=== PATIENT | male | born 1955 | race African-American/Black ===

== ENCOUNTER 2017-06-27 12:56 | Emergency (ER) | payer MEDICAID ==
[~2017-06-27] VITALS: Ht 180.3 cm; Wt 81.6 kg
[~2017-06-27 12:56] MED LIST: ACETAMINOPHEN650 M2 GT; ALBUTEROL2.5 MG/3 M HHN; ATROVENT500 MCG/2. HHN; BACTRIM-DS1 EA GT; BACTRIM-DS1 EA ORAL; BISACODYL5 MG RC; CLONIDINE0.1 MG GT; COREG25 MG GT; FERROUS SU325 MG/5 M GT; FLEET ENEMA133 ML RC; HYDRALAZINE HCL50 MG GT; MILK OF MA400 MG/51 GT; MULTIVITAM9 MG/15 M2 GT; NEXIUM40 MG GT; NORVASC5 MG GT; NOVOLIN R100 UNIT/1 SUBQ; acetaminophen GT; amlodipine besylate GT; vitamin c GT
[2017-06-27 13:00] VITALS: BP 100/45
[2017-06-27] MEDS ORDERED: BISACODYL10 M1 RC (13:06)
[2017-06-27] MEDS ORDERED: ASCORBIC A500 MG/1 M IJ (13:06)
[2017-06-27] MEDS ORDERED: FERROUS SU220 MG/53 PO (13:06)
[2017-06-27] MEDS ORDERED: GLUCAGON HCL1 MG IM (13:06)
--- NOTE | 2017-06-27 13:06 | Emergency Room Report ---
History of Present Illness General Chief Complaint: Vomiting Source: EMS Present Illness HPI Patient presents from nursing facility with reports of coffee-ground emesis Patient himself has a tracheostomy not verbal History of present illness is significantly limited Unknown regarding dark stool Unknown regarding fever Unknown regarding chest pain The coffee-ground emesis happened earlier today Patient does have a G-tube in place Allergies: Coded Allergies: No Known Allergies (Verified , 02/21/07) Patient History Limited by: medical condition Past Medical History: see triage record Pertinent Family History: unable to obtain Reviewed Nursing Documentation: PMH: Agreed, PSxH: Agreed Nursing Documentation-PMH Hx Cardiac Problems: Yes Hx Hypertension: Yes Hx Diabetes: Yes Hx Cancer: No Hx Gastrointestinal Problems: Yes - gastrostomy tube Hx Neurological Problems: Yes Hx Cerebrovascular Accident: Yes Hx Transient Ischemic Attacks: Yes Hx Encephalitis: Yes Review of Systems All Other Systems: limited - Other than the ones mentioned in the history of present illness all others are reviewed however they do stay limited due to the patient's mental status Physical Exam Vital Signs Date Time Temp Pulse Resp B/P (MAP) Pulse Ox O2 Delivery O2 Flow Rate FiO2 06/27/17 12:48 98.6 82 20 136/84 100 Mechanical Ventilator Sp02 EP Interpretation: reviewed, normal General Appearance: no apparent distress Head: normocephalic, atraumatic Eyes: bilateral eye PERRL ENT: normal pharynx, other - Tracheostomy in place Neck: supple Respiratory: crackles - diffusely in both lower lobes Cardiovascular #1: regular rate, rhythm, no edema Gastrointestinal: non tender, soft - Feeding tube in place Musculoskeletal: other - Patient chronically debilitated limited exam Neurologic: responsive - Responsive with eyes open tracking but not verbal Skin: other - several skin breakdowns Lymphatic: no adenopathy Medical Decision Making ER Course Case his hand out to oncoming physician Dr. Lambert for followup on labs and final disposition Last Vital Signs Date Time Temp Pulse Resp B/P (MAP) Pulse Ox O2 Delivery O2 Flow Rate FiO2 06/27/17 12:48 98.6 82 20 136/84 100 Mechanical Ventilator Scripts Cephalexin* (KEFLEX*) 500 Mg Capsule 500 MG GT Q6H, #28 CAP 0 Refills Prov: SARAH LAMBERT M.D. 06/27/17 JUSTINA BEASLEY D.O. Jun 27, 2017 13:06
[2017-06-27] MEDS ORDERED: RANITIDINE HCL150 MG GT (13:16)
[2017-06-27] MEDS ORDERED: HUMALOG100 UNIT/4 SUBQ (13:16)
[2017-06-27] MEDS ORDERED: NORVASC5 MG ORAL (13:16)
[2017-06-27] MEDS ORDERED: K-TAB ER20 MEQ GT (13:16)
[2017-06-27] MEDS ORDERED: ACETAMINOPHEN325 M1 ORAL (13:16)
[2017-06-27] MEDS ORDERED: LANTUS SOL100 UNIT/1 SUBQ (13:16)
[2017-06-27] MEDS ORDERED: PERIDEX15 ML MM (13:16)
[2017-06-27] MEDS ORDERED: ACETAMINOPHEN325 M1 GT (13:16)
[2017-06-27] MEDS ORDERED: MILK OF MA2400 MG/10 ORAL (13:16)
[2017-06-27] MEDS ORDERED: POTASSIUM CHLO10 ME3 GT (13:16)
[2017-06-27] MEDS ORDERED: ZANTAC150 MG ORAL (13:16)
[2017-06-27] MEDS ORDERED: 1/2 NS 1000ml IV ONE (13:31)
[2017-06-27 14:15] LABS: BASOPHILS % (AUTO) 0.9 % (0.0-2.0); EOSINOPHILS % (AUTO) 12.8 % (0.0-3.0); HEMATOCRIT 41.8 % (42.0-52.0); LYMPHOCYTES % (AUTO) 22.7 % (20.0-45.0); MEAN CORPUSCULAR VOLUME 83 FL (80-99); MONOCYTES % (AUTO) 6.7 % (1.0-10.0); NEUTROPHILS % (AUTO) 56.9 % (45.0-75.0); PLATELET COUNT 150 K/UL (150-450); RED BLOOD COUNT 5.02 M/UL (4.70-6.10); RED CELL DISTRIBUTION WIDTH 13.4 % (11.6-14.8); WHITE BLOOD COUNT 9.7 K/UL (4.8-10.8)
[2017-06-27 14:19] LABS: BILIRUBIN, URINE NEGATIVE (NEGATIVE); GLUCOSE, URINE (UA) NEGATIVE (NEGATIVE); KETONES,URINE NEGATIVE (NEGATIVE); LEUKOCYTE ESTERASE ,URINE 3+ (NEGATIVE); NITRITE,URINE NEGATIVE (NEGATIVE); PH,URINE 7 (4.5-8.0); PROTEIN,URINE NEGATIVE (NEGATIVE); UROBILINOGEN,URINE NORMAL MG/DL (0.0-1.0)
[2017-06-27 14:27] LABS: COLOR,URINE YELLOW
[2017-06-27 14:36] LABS: APPEARANCE,URINE CLOUDY
[2017-06-27 14:45] LABS: ALANINE AMINOTRANSFERASE 34 U/L (12-78); ALBUMIN 3.3 G/DL (3.4-5.0); ALBUMIN/GLOBULIN RATIO 0.7 (1.0-2.7); ALKALINE PHOSPHATASE 69 U/L (46-116); ANION GAP 6 mmol/L (5-15); ASPARTATE AMINO TRANSFERASE 25 U/L (15-37); BILIRUBIN,TOTAL 0.5 MG/DL (0.2-1.0); BLOOD UREA NITROGEN 28 mg/dL (7-18); CALCIUM 9.6 MG/DL (8.5-10.1); CARBON DIOXIDE 32 MMOL/L (21-32); CHLORIDE 103 MMOL/L (98-107); CHOLESTEROL 134 MG/DL (< 200); CKMB 2.2 NG/ML (0.0-3.6); CREATINE KINASE 164 U/L (26-308); CREATININE 1.1 MG/DL (0.55-1.30); HDL CHOLESTEROL 37 MG/DL (40-60); POTASSIUM 3.9 MMOL/L (3.5-5.1); SODIUM 141 MMOL/L (136-145); TRIGLYCERIDES 42 MG/DL (0-200)
[2017-06-27 15:00] VITALS: BP 123/74
[2017-06-27] MEDS ORDERED: Pantoprazole Inj IVP ONE (15:00)
[2017-06-27] MEDS ORDERED: cefTRIAXone 1 GM in NS 55 ML IVPB ONE (15:00)
--- NOTE | 2017-06-27 15:01 | Diagnostic Imaging Report ---
Indication: Chest Comparison: 11/28/12 A single view chest radiograph was obtained. Findings: Ill-defined density noted in the right mid and lower lung field. This was seen previously and is chronic. The heart is enlarged. This current study is limited by the patient's hand overlying the chest. There is a tracheostomy present. The bones are osteopenic. Impression: Limited evaluation as described above. Ill-defined right chest density most likely thickening and calcification of the pleura, seen previously.
--- NOTE | 2017-06-27 15:08 | Infectious Diseases Prog Note ---
Assessment/Plan Problems: (1) UTI (urinary tract infection) Assessment & Plan: will start cefepime empirically pending culture (2) Coffee ground emesis Assessment & Plan: keep NPO, monitor H/H, transfuse blood as needed, consult GI (3) GI bleed Assessment & Plan: monitor H/H transfuse blood as needed (4) Tracheostomy care Assessment & Plan: continue trach care as needed Subjective Allergies: Coded Allergies: No Known Allergies (Verified , 02/21/07) Objective Vital Signs Last 24 Hour Vital Signs Date Time Temp Pulse Resp B/P (MAP) Pulse Ox O2 Delivery O2 Flow Rate FiO2 06/27/17 14:50 85 16 40 06/27/17 13:00 82 24 40 06/27/17 12:48 98.6 82 20 136/84 100 Mechanical Ventilator Height (Feet): 5 Height (Inches): 11.00 Weight (Pounds): 180 Laboratory Tests Test 06/27/17 13:20 White Blood Count 9.7 K/UL (4.8-10.8) Red Blood Count 5.02 M/UL (4.70-6.10) Hemoglobin 13.0 G/DL (14.2-18.0) L Hematocrit 41.8 % (42.0-52.0) L Mean Corpuscular Volume 83 FL (80-99) Mean Corpuscular Hemoglobin 25.8 PG (27.0-31.0) L Mean Corpuscular Hemoglobin Concent 31.0 G/DL (32.0-36.0) L Red Cell Distribution Width 13.4 % (11.6-14.8) Platelet Count 150 K/UL (150-450) Mean Platelet Volume 9.7 FL (6.5-10.1) Neutrophils (%) (Auto) 56.9 % (45.0-75.0) Lymphocytes (%) (Auto) 22.7 % (20.0-45.0) Monocytes (%) (Auto) 6.7 % (1.0-10.0) Eosinophils (%) (Auto) 12.8 % (0.0-3.0) H Basophils (%) (Auto) 0.9 % (0.0-2.0) Prothrombin Time 10.2 SEC (9.30-11.50) Prothromb Time International Ratio 1.0 (0.9-1.1) Activated Partial Thromboplast Time 27 SEC (23-33) Urine Color Yellow Urine Appearance Cloudy Urine pH 7 (4.5-8.0) Urine Specific [place] 1.010 (1.005-1.035) Urine Protein Negative (NEGATIVE) Urine Glucose (UA) Negative (NEGATIVE) Urine Ketones Negative (NEGATIVE) Urine Occult Blood Negative (NEGATIVE) Urine Nitrite Negative (NEGATIVE) Urine Bilirubin Negative (NEGATIVE) Urine Urobilinogen Normal MG/DL (0.0-1.0) Urine Leukocyte Esterase 3+ (NEGATIVE) H Urine RBC 0-2 /HPF (0 - 0) H Urine WBC 5-10 /HPF (0 - 0) H Urine Squamous Epithelial Cells Occasional /LPF Urine Bacteria Many /HPF (NONE) H Sodium Level 141 MMOL/L (136-145) Potassium Level 3.9 MMOL/L (3.5-5.1) Chloride Level 103 MMOL/L (98-107) Carbon Dioxide Level 32 MMOL/L (21-32) Anion Gap 6 mmol/L (5-15) Blood Urea Nitrogen 28 mg/dL (7-18) H Creatinine 1.1 MG/DL (0.55-1.30) Estimat Glomerular Filtration Rate > 60 mL/min (>60) Glucose Level 96 MG/DL (74-106) Calcium Level 9.6 MG/DL (8.5-10.1) Total Bilirubin 0.5 MG/DL (0.2-1.0) Aspartate Amino Transf (AST/SGOT) 25 U/L (15-37) Alanine Aminotransferase (ALT/SGPT) 34 U/L (12-78) Alkaline Phosphatase 69 U/L (46-116) Total Creatine Kinase 164 U/L (26-308) Creatine Kinase MB 2.2 NG/ML (0.0-3.6) Creatine Kinase MB Relative Index 1.3 Troponin I 0.017 ng/mL (0.000-0.056) Total Protein 8.2 G/DL (6.4-8.2) Albumin 3.3 G/DL (3.4-5.0) L Globulin 4.9 g/dL Albumin/Globulin Ratio 0.7 (1.0-2.7) L Triglycerides Level 42 MG/DL (0-200) Cholesterol Level 134 MG/DL (< 200) LDL Cholesterol 94 mg/dL (<100) HDL Cholesterol 37 MG/DL (40-60) L Cholesterol/HDL Ratio 3.6 (3.3-4.4) Current Medications Medications (Trade) Dose Ordered Sig/Kendell Route PRN Reason Start Time Stop Time Status Last Admin Dose Admin Ceftriaxone Sodium 1 gm/ Sodium Chloride 55 ml @ 110 mls/hr ONCE ONCE IVPB 06/27/17 15:00 06/27/17 15:29 Sodium Chloride 1,000 ml @ 999 mls/hr Q1H1M ONCE IV 06/27/17 15:00 06/27/17 16:00 Jose Eduardo Swann M.D. Jun 27, 2017 15:08
[2017-06-27 16:15] VITALS: BP 118/66
[2017-06-27] MEDS ORDERED: KEFLEX500 MG GT (17:42)
--- NOTE | 2017-06-27 18:30 | Consultation ---
DATE OF CONSULTATION: 06/27/2017 CONSULTING PHYSICIAN: Jose Eduardo Swann M.D. ATTENDING PHYSICIAN: Torres Jruado M.D. REQUESTING PHYSICIAN: Segun Figueredo M.D. REASON FOR CONSULTATION: Urinary tract infection, recommendation for antibiotic therapy. HISTORY OF PRESENT ILLNESS: The patient is a 62-year-old [facility] resident, who was sent to [facility] Emergency Room for recurrent episode of coffee-ground emesis. The patient had tracheostomy, nonverbal, cannot provide any history. History was mainly obtained from the medical record and the emergency room staff. The patient had dark stools for a couple of days before presentation. No evidence of fever or chills at the [facility]. No other associated problem. G-tube was placed long time ago with no evidence of drainage around it. The patient had temperature of 98.6. He was saturating 100% on mechanical ventilation. Urinalysis showed evidence of infection, so he was given ceftriaxone and I was consulted by the primary provider for antibiotic treatment for his urinary tract infection and further management. REVIEW OF SYSTEMS: Unable to obtain. The patient is poor historian, cannot provide any history. PAST MEDICAL HISTORY: Significant for coronary artery disease, hypertension, diabetes, dysphagia, status post G-tube placement, CVA, TIA, and encephalitis. PAST SURGICAL HISTORY: Negative. FAMILY HISTORY: Unable to obtain. SOCIAL HISTORY: He is [facility] resident. No recent drugs, tobacco, or alcohol. ALLERGIES: No known drug allergy. MEDICATIONS: He received ceftriaxone in the emergency room. For the rest of his medications, please refer to MAR. PHYSICAL EXAMINATION: VITAL SIGNS: Temperature 98.6, pulse 85, respirations 16, blood pressure 136/84, and saturation 100% on mechanical ventilation. GENERAL: A middle-aged male with trach, lying in bed, comfortable, nonverbal, not in distress. HEENT: Normocephalic, atraumatic. Pupils reactive to light. Dry oral mucosa. No exudate or thrush. NECK: Supple with tracheostomy, site looks intact. CARDIOVASCULAR: Regular rate and rhythm. No murmur. LUNGS: He had diminished breathing sounds at the bases. No wheezing. No rhonchi. ABDOMEN: Soft, nontender, and nondistended. Positive bowel sounds. G-tube site looks intact. EXTREMITIES: No edema or cyanosis. SKIN: No rash or hives. LABORATORY DATA: White count 9.7, hemoglobin 13, and platelet count 150,000. BUN 28, creatinine 1.1. AST 25, ALT 34. Urinalysis showed +3 leukocyte esterase, red blood cells 0-2, WBC 5-10, and many bacteria. IMAGING: Chest x-ray showed limited evaluation, ill-defined right chest density most likely thickening and calcification of the pleura. ASSESSMENT AND RECOMMENDATION: 1. Urinary tract infection. We will start cefepime empiric treatment pending urine culture results. 2. Coffee-ground emesis. Keep n.p.o. Monitor hemoglobin and hematocrit. Transfuse blood as needed. Consult Gastroenterology. 3. Gastrointestinal bleeding. Monitor hemoglobin and hematocrit. Transfuse blood as needed. 4. Tracheostomy care. Continue tracheostomy care as needed. Thank you for the consult. Jose Eduardo Swann M.D. DR: Deepak JOB#: [id number] CC:
--- NOTE | 2017-06-27 18:30 | Consultation ---
DATE OF CONSULTATION: 06/27/2017 CONSULTING PHYSICIAN: Jose Eduardo Swann M.D. ATTENDING PHYSICIAN: Torres Jurado M.D. REQUESTING PHYSICIAN: Segun Figueredo M.D. REASON FOR CONSULTATION: Urinary tract infection, recommendation for antibiotic therapy. HISTORY OF PRESENT ILLNESS: The patient is a 62-year-old [facility] resident, who was sent to [facility] Emergency Room for recurrent episode of coffee-ground emesis. The patient had tracheostomy, nonverbal, cannot provide any history. History was mainly obtained from the medical record and the emergency room staff. The patient had dark stools for a couple of days before presentation. No evidence of fever or chills at the [facility]. No other associated problem. G-tube was placed long time ago with no evidence of drainage around it. The patient had temperature of 98.6. He was saturating 100% on mechanical ventilation. Urinalysis showed evidence of infection, so he was given ceftriaxone and I was consulted by the primary provider for antibiotic treatment for his urinary tract infection and further management. REVIEW OF SYSTEMS: Unable to obtain. The patient is poor historian, cannot provide any history. PAST MEDICAL HISTORY: Significant for coronary artery disease, hypertension, diabetes, dysphagia, status post G-tube placement, CVA, TIA, and encephalitis. PAST SURGICAL HISTORY: Negative. FAMILY HISTORY: Unable to obtain. SOCIAL HISTORY: He is [facility] resident. No recent drugs, tobacco, or alcohol. ALLERGIES: No known drug allergy. MEDICATIONS: He received ceftriaxone in the emergency room. For the rest of his medications, please refer to MAR. PHYSICAL EXAMINATION: VITAL SIGNS: Temperature 98.6, pulse 85, respirations 16, blood pressure 136/84, and saturation 100% on mechanical ventilation. GENERAL: A middle-aged male with trach, lying in bed, comfortable, nonverbal, not in distress. HEENT: Normocephalic, atraumatic. Pupils reactive to light. Dry oral mucosa. No exudate or thrush. NECK: Supple with tracheostomy, site looks intact. CARDIOVASCULAR: Regular rate and rhythm. No murmur. LUNGS: He had diminished breathing sounds at the bases. No wheezing. No rhonchi. ABDOMEN: Soft, nontender, and nondistended. Positive bowel sounds. G-tube site looks intact. EXTREMITIES: No edema or cyanosis. SKIN: No rash or hives. LABORATORY DATA: White count 9.7, hemoglobin 13, and platelet count 150,000. BUN 28, creatinine 1.1. AST 25, ALT 34. Urinalysis showed +3 leukocyte esterase, red blood cells 0-2, WBC 5-10, and many bacteria. IMAGING: Chest x-ray showed limited evaluation, ill-defined right chest density most likely thickening and calcification of the pleura. ASSESSMENT AND RECOMMENDATION: 1. Urinary tract infection. We will start cefepime empiric treatment pending urine culture results. 2. Coffee-ground emesis. Keep n.p.o. Monitor hemoglobin and hematocrit. Transfuse blood as needed. Consult Gastroenterology. 3. Gastrointestinal bleeding. Monitor hemoglobin and hematocrit. Transfuse blood as needed. 4. Tracheostomy care. Continue tracheostomy care as needed. Thank you for the consult. Jose Eduardo Swann M.D. DR: Deepak JOB#: [id number] CC:
--- NOTE | 2017-06-27 18:30 | Consultation ---
DATE OF CONSULTATION: 06/27/2017 CONSULTING PHYSICIAN: Jose Eduardo Swann M.D. ATTENDING PHYSICIAN: Torres Jurado M.D. REQUESTING PHYSICIAN: Segun Figueredo M.D. REASON FOR CONSULTATION: Urinary tract infection, recommendation for antibiotic therapy. HISTORY OF PRESENT ILLNESS: The patient is a 62-year-old [facility] resident, who was sent to [facility] Emergency Room for recurrent episode of coffee-ground emesis. The patient had tracheostomy, nonverbal, cannot provide any history. History was mainly obtained from the medical record and the emergency room staff. The patient had dark stools for a couple of days before presentation. No evidence of fever or chills at the [facility]. No other associated problem. G-tube was placed long time ago with no evidence of drainage around it. The patient had temperature of 98.6. He was saturating 100% on mechanical ventilation. Urinalysis showed evidence of infection, so he was given ceftriaxone and I was consulted by the primary provider for antibiotic treatment for his urinary tract infection and further management. REVIEW OF SYSTEMS: Unable to obtain. The patient is poor historian, cannot provide any history. PAST MEDICAL HISTORY: Significant for coronary artery disease, hypertension, diabetes, dysphagia, status post G-tube placement, CVA, TIA, and encephalitis. PAST SURGICAL HISTORY: Negative. FAMILY HISTORY: Unable to obtain. SOCIAL HISTORY: He is custodial resident. No recent drugs, tobacco, or alcohol. ALLERGIES: No known drug allergy. MEDICATIONS: He received ceftriaxone in the emergency room. For the rest of his medications, please refer to MAR. PHYSICAL EXAMINATION: VITAL SIGNS: Temperature 98.6, pulse 85, respirations 16, blood pressure 136/84, and saturation 100% on mechanical ventilation. GENERAL: A middle-aged male with trach, lying in bed, comfortable, nonverbal, not in distress. HEENT: Normocephalic, atraumatic. Pupils reactive to light. Dry oral mucosa. No exudate or thrush. NECK: Supple with tracheostomy, site looks intact. CARDIOVASCULAR: Regular rate and rhythm. No murmur. LUNGS: He had diminished breathing sounds at the bases. No wheezing. No rhonchi. ABDOMEN: Soft, nontender, and nondistended. Positive bowel sounds. G-tube site looks intact. EXTREMITIES: No edema or cyanosis. SKIN: No rash or hives. LABORATORY DATA: White count 9.7, hemoglobin 13, and platelet count 150,000. BUN 28, creatinine 1.1. AST 25, ALT 34. Urinalysis showed +3 leukocyte esterase, red blood cells 0-2, WBC 5-10, and many bacteria. IMAGING: Chest x-ray showed limited evaluation, ill-defined right chest density most likely thickening and calcification of the pleura. ASSESSMENT AND RECOMMENDATION: 1. Urinary tract infection. We will start cefepime empiric treatment pending urine culture results. 2. Coffee-ground emesis. Keep n.p.o. Monitor hemoglobin and hematocrit. Transfuse blood as needed. Consult Gastroenterology. 3. Gastrointestinal bleeding. Monitor hemoglobin and hematocrit. Transfuse blood as needed. 4. Tracheostomy care. Continue tracheostomy care as needed. Thank you for the consult. Jose Eduardo Swann M.D. DR: Deepak JOB#: [id number] CC:
[2017-06-27 18:40] VITALS: BP 117/53
[2017-06-27 18:41] VITALS: BP 117/53
[2017-06-27] MEDS ORDERED: Cefepime HCl 1 GM in D5W 55 ML IVPB SCH (21:00)
--- NOTE | 2017-06-28 11:08 | Emergency Room Report ---
Physical Exam Vital Signs Date Time Temp Pulse Resp B/P (MAP) Pulse Ox O2 Delivery O2 Flow Rate FiO2 06/27/17 12:48 98.6 82 20 136/84 100 Mechanical Ventilator 06/27/17 13:00 40 Medical Decision Making Diagnostic Impression: Primary Impression: UTI (urinary tract infection) Additional Impression: Coffee ground emesis ER Course Positive blood culture reported, gram-positive cocci in all 4 bottles, per review of notes patient was discharged to SNF with Keflex. It was noted that infectious diseases is following the patient. Informed the patient's primary care doctor, Dr. Schumacher of results. Last Vital Signs Date Time Temp Pulse Resp B/P (MAP) Pulse Ox O2 Delivery O2 Flow Rate FiO2 06/27/17 18:41 99.2 63 14 117/53 100 Mechanical Ventilator 40 Disposition: SNF Condition: Stable Scripts Cephalexin* (KEFLEX*) 500 Mg Capsule 500 MG GT Q6H, #28 CAP 0 Refills Prov: SARAH FRANCOIS M.D. 06/27/17 Referrals: Segun Figueredo MD (PCP) Patient Instructions: Dysuria Chrissy Maguire M.D. Jun 28, 2017 11:08
--- NOTE | 2017-06-28 15:16 | Cardiology Report ---
APPROVED REPORT EKG Measurement Heart [id number] [place] 208P78 [id number] Normal sinus rhythm Anteroseptal infarct, age undetermined Abnormal ECG
--- NOTE | 2017-06-28 15:16 | Cardiology Report ---
APPROVED REPORT EKG Measurement Heart [id number] [place] 208P78 [id number] Normal sinus rhythm Anteroseptal infarct, age undetermined Abnormal ECG
--- NOTE | 2017-06-28 15:16 | Cardiology Report ---
APPROVED REPORT EKG Measurement Heart [id number] [place] 208P78 [id number] Normal sinus rhythm Anteroseptal infarct, age undetermined Abnormal ECG
[2017-07-04] MEDS ORDERED: CEFEPIME-D2 GM/50 ML IVPB (13:42)
[2017-07-04] MEDS ORDERED: VANCOMYCIN1 GM/2502 IVPB (13:42)
== END 2017-06-27 19:04 ==
LOC: EDBD 12:56 → EMR 13:30 → 2W 13:35 → UNDOADMIN 13:35 → EDBEDREQ 14:27 → CANBEDREQ 17:55 → EMR 19:04
DX: N39.0 Urinary tract infection, site not specified (principal); K92.0 Hematemesis; R78.81 Bacteremia; Z93.0 Tracheostomy status; Z93.1 Gastrostomy status; E11.9 Type 2 diabetes mellitus without complications; I10 Essential (primary) hypertension; Z86.73 Personal history of transient ischemic attack (TIA), and cerebral infarction without residual deficits; I25.10 Atherosclerotic heart disease of native coronary artery without angina pectoris; R13.10 Dysphagia, unspecified; J94.8 Other specified pleural conditions
CPT/HCPCS: 36415; 71010; 80053; 80061; 81003; 82550; 82553; 82962; 84484; 85025; 85610; 85730; 87040; 87081; 87086; 87181; 93005; 94002; 94003; 96361; 96365; 96375; 99284; C9113; J0696

== ENCOUNTER 2017-06-29 19:47 | Inpatient (IN) | payer MEDICAID ==
[~2017-06-29] VITALS: Ht 182.9 cm; Wt 99.8 kg
[~2017-06-29 19:47] MED LIST changes: +ACETAMINOPHEN325 M1 GT; +ACETAMINOPHEN325 M1 ORAL; +ASCORBIC A500 MG/1 M IJ; +BISACODYL10 M1 RC; +FERROUS SU220 MG/53 PO; +GLUCAGON HCL1 MG IM; +HUMALOG100 UNIT/4 SUBQ; +K-TAB ER20 MEQ GT; +KEFLEX500 MG GT; +LANTUS SOL100 UNIT/1 SUBQ; +MILK OF MA2400 MG/10 ORAL; +NORVASC5 MG ORAL; +PERIDEX15 ML MM; +POTASSIUM CHLO10 ME3 GT; +RANITIDINE HCL150 MG GT; +ZANTAC150 MG ORAL
[2017-06-29] MEDS ORDERED: Sodium Chloride 500ML 500 ML IV ONE (20:03)
[2017-06-29] MEDS ORDERED: Vancomycin 1.5gm/D5W 250ml 250 ML IVPB ONE (20:15)
[2017-06-29] MEDS ORDERED: Piperacillin/Tazobactam 4.5 GM in NS 110 ML IVPB ONE (20:15)
[2017-06-29 20:49] LABS: HEMATOCRIT 39.8 % (42.0-52.0); HEMOGLOBIN 12.6 G/DL (14.2-18.0); MEAN CORPUSCULAR VOLUME 84 FL (80-99); PLATELET COUNT 140 K/UL (150-450); RED BLOOD COUNT 4.74 M/UL (4.70-6.10); RED CELL DISTRIBUTION WIDTH 13.3 % (11.6-14.8)
[2017-06-29] MEDS ORDERED: DiphenhydrAMINE 50mg/ml Inj ONE (20:51)
[2017-06-29] MEDS ORDERED: MULTI-DAY PLUS1 EAC1 PO (20:51)
[2017-06-29] MEDS ORDERED: VITAMIN C500 MG/11 PO (20:51)
[2017-06-29] MEDS ORDERED: OMEPRAZOLE20 M3 GT (20:53)
[2017-06-29] MEDS ORDERED: DiphenhydrAMINE 50mg/ml Inj IVP ONE (21:00)
[2017-06-29 21:02] LABS: ALANINE AMINOTRANSFERASE 31 U/L (12-78); ALBUMIN 3.3 G/DL (3.4-5.0); ALBUMIN/GLOBULIN RATIO 0.7 (1.0-2.7); ALKALINE PHOSPHATASE 60 U/L (46-116); ANION GAP 7 mmol/L (5-15); ASPARTATE AMINO TRANSFERASE 29 U/L (15-37); BILIRUBIN,TOTAL 0.4 MG/DL (0.2-1.0); BLOOD UREA NITROGEN 23 mg/dL (7-18); CALCIUM 9.3 MG/DL (8.5-10.1); CARBON DIOXIDE 30 MMOL/L (21-32); CHLORIDE 104 MMOL/L (98-107); CREATININE 0.9 MG/DL (0.55-1.30); POTASSIUM 4.3 MMOL/L (3.5-5.1); SODIUM 141 MMOL/L (136-145)
[2017-06-29] MEDS ORDERED: Zosyn 4.5gm inj ONE (21:11)
[2017-06-29 21:12] LABS: CKMB 4.8 NG/ML (0.0-3.6); CREATINE KINASE 269 U/L (26-308)
[2017-06-29 21:30] LABS: APPEARANCE,URINE CLEAR; BILIRUBIN, URINE NEGATIVE (NEGATIVE); COLOR,URINE PALE YELLOW; GLUCOSE, URINE (UA) NEGATIVE (NEGATIVE); KETONES,URINE NEGATIVE (NEGATIVE); LEUKOCYTE ESTERASE ,URINE NEGATIVE (NEGATIVE); NITRITE,URINE NEGATIVE (NEGATIVE); PH,URINE 8 (4.5-8.0); PROTEIN,URINE NEGATIVE (NEGATIVE); UROBILINOGEN,URINE NORMAL MG/DL (0.0-1.0)
[2017-06-29] MEDS ORDERED: ceFAZolin 1gm/50ml Premix 50 ML IV ONE (22:30)
--- NOTE | 2017-06-29 22:39 | Emergency Room Report ---
History of Present Illness General Chief Complaint: Abnormal Labs Source: Medical Record, EMS, PMD Present Illness HPI Patient was recently seen in emergency department and patient had at that time diagnosis with UTI. Patient had blood cultures obtained which currently shows positive for gram-negative rods and gram-positive. Patient was brought here for further evaluation. On arrival patient did not have fever or patient is nonverbal trach ventilated patient's primary care physician Dr. Segun Foster symptoms noted to be highly severe.No other modifying factors. No other associated signs and symptoms. No other complaints were noted. Allergies: Coded Allergies: No Known Allergies (Verified , 02/21/07) Patient History Past Medical History: DM, HTN, other - tracheostomy, Past Surgical History: other - G-tube Social History Narrative stays at longterm Reviewed Nursing Documentation: PMH: Agreed, PSxH: Agreed Nursing Documentation-PMH Hx Cardiac Problems: Yes - TRACHE,VENT DEPENDENT Hx Hypertension: Yes Hx Diabetes: Yes Hx Cancer: No Hx Gastrointestinal Problems: Yes - gastrostomy tube Hx Neurological Problems: Yes Hx Cerebrovascular Accident: Yes Hx Transient Ischemic Attacks: Yes Hx Encephalitis: Yes Review of Systems All Other Systems: limited - poor mental status Physical Exam Vital Signs Date Time Temp Pulse Resp B/P (MAP) Pulse Ox O2 Delivery O2 Flow Rate FiO2 06/29/17 19:55 98.4 59 17 170/89 98 Mechanical Ventilator 5.0 06/29/17 20:12 40 Sp02 EP Interpretation: reviewed, normal General Appearance: Chronically Ill Head: atraumatic Eyes: bilateral eye normal inspection ENT: moist mucus membranes, other - ttracheostomy Neck: supple Respiratory: lungs clear, normal breath sounds Cardiovascular #1: regular rate, rhythm, no edema Gastrointestinal: non tender, soft Genitourinary: normal inspection Musculoskeletal: other - contractures Neurologic: other - unable to assess Psychiatric: other - unable to assess Medical Decision Making Diagnostic Impression: Primary Impression: Abnormal laboratory test result Additional Impression: Sepsis ER Course Patient presents emergency department today complaining of abnormal blood test was positive blood cultures. Differential diagnoses include sepsis, pneumonia, UTI just to name a few. Given the severity of the patient's presentation I felt this is a highly complex patient. This patient required extensive workup. Given severe he patient's mentation case was discussed with Dr. Segun Foster. Is felt the patient require admission as the longterm would not be able to handle positive blood cultures were multiple IV antibiotics. Case is discussed Dr. Fairbanks who is hospice nurse practitioner for patient's medical group. Patient will be admitted to Dr. Fairbanks service for further treatment. Labs Test 06/29/17 20:12 06/29/17 20:17 White Blood Count 6.0 K/UL (4.8-10.8) Red Blood Count 4.74 M/UL (4.70-6.10) Hemoglobin 12.6 G/DL (14.2-18.0) Hematocrit 39.8 % (42.0-52.0) Mean Corpuscular Volume 84 FL (80-99) Mean Corpuscular Hemoglobin 26.6 PG (27.0-31.0) Mean Corpuscular Hemoglobin Concent 31.7 G/DL (32.0-36.0) Red Cell Distribution Width 13.3 % (11.6-14.8) Platelet Count 140 K/UL (150-450) Mean Platelet Volume 8.9 FL (6.5-10.1) Neutrophils (%) (Auto) % (45.0-75.0) Lymphocytes (%) (Auto) % (20.0-45.0) Monocytes (%) (Auto) % (1.0-10.0) Eosinophils (%) (Auto) % (0.0-3.0) Basophils (%) (Auto) % (0.0-2.0) Differential Total Cells Counted 100 Neutrophils % (Manual) 39 % (45-75) Lymphocytes % (Manual) 35 % (20-45) Monocytes % (Manual) 8 % (1-10) Eosinophils % (Manual) 18 % (0-3) Basophils % (Manual) 0 % (0-2) Band Neutrophils 0 % (0-8) Platelet Estimate Decreased Platelet Morphology Normal Red Blood Cell Morphology Normal Sodium Level 141 MMOL/L (136-145) Potassium Level 4.3 MMOL/L (3.5-5.1) Chloride Level 104 MMOL/L (98-107) Carbon Dioxide Level 30 MMOL/L (21-32) Anion Gap 7 mmol/L (5-15) Blood Urea Nitrogen 23 mg/dL (7-18) Creatinine 0.9 MG/DL (0.55-1.30) Estimat Glomerular Filtration Rate > 60 mL/min (>60) Glucose Level 90 MG/DL (74-106) Calcium Level 9.3 MG/DL (8.5-10.1) Total Bilirubin 0.4 MG/DL (0.2-1.0) Aspartate Amino Transf (AST/SGOT) 29 U/L (15-37) Alanine Aminotransferase (ALT/SGPT) 31 U/L (12-78) Alkaline Phosphatase 60 U/L (46-116) Total Creatine Kinase 269 U/L (26-308) Creatine Kinase MB 4.8 NG/ML (0.0-3.6) Creatine Kinase MB Relative Index 1.7 Pro-B-Type Natriuretic Peptide 173 pg/mL (0-125) Total Protein 8.1 G/DL (6.4-8.2) Albumin 3.3 G/DL (3.4-5.0) Globulin 4.8 g/dL Albumin/Globulin Ratio 0.7 (1.0-2.7) Lipase 142 U/L (73-393) Urine Color Pale yellow Urine Appearance Clear Urine pH 8 (4.5-8.0) Urine Specific [place] 1.010 (1.005-1.035) Urine Protein Negative (NEGATIVE) Urine Glucose (UA) Negative (NEGATIVE) Urine Ketones Negative (NEGATIVE) Urine Occult Blood Negative (NEGATIVE) Urine Nitrite Negative (NEGATIVE) Urine Bilirubin Negative (NEGATIVE) Urine Urobilinogen Normal MG/DL (0.0-1.0) Urine Leukocyte Esterase Negative (NEGATIVE) EKG Diagnostic Results Rate: normal Rhythm: NSR ST Segments: no acute changes Rhythm Strip Diag. Results EP Interpretation: yes Rate: 52 Rhythm: NSR, no PVC's, no ectopy Chest X-Ray Diagnostic Results Chest X-Ray Diagnostic Results : Chest X-Ray Ordered: Yes # of Views/Limited/Complete: 1 View Indication: Shortness of Breath EP Interpretation: Yes Interpretation: no effusion, no pneumothorax, other - right pulmonary infiltrate chronic Impression: No acute disease Electronically Signed by: Electronically signed by Art Mcmullen MD Last Vital Signs Date Time Temp Pulse Resp B/P (MAP) Pulse Ox O2 Delivery O2 Flow Rate FiO2 06/29/17 20:54 129 22 40 06/29/17 20:12 Mechanical Ventilator 06/29/17 19:55 98.4 170/89 98 5.0 Status: improved Disposition: ADMITTED INPATIENT Condition: Serious Referrals: [facility],REFERRING (PCP) Patient Instructions: Blood Culture Test Additional Instructions: continue antibiotics per pmd. return to ER if worse and as needed. ART MCMULLEN M.D. Jun 29, 2017 22:39
[2017-06-29] MEDS ORDERED: ceFAZolin sod 0.5 GM in D5W 55 ML IV SCH (23:00)
[2017-06-30] VITALS (7 sets, daily range): BP systolic 117–161; BP diastolic 65–92
[2017-06-30] MEDS ORDERED: Zosyn 3.375gm/50ml Premix 50 ML IVPB SCH ×2 (00:30)
[2017-06-30] MEDS: HydrALAZINE 50mg tab GT SCH ×3 (06:49→18:34)
--- NOTE | 2017-06-30 08:20 | Infectious Diseases Prog Note ---
Assessment/Plan Problems: (1) Septicemia due to Acinetobacter species Assessment & Plan: updated sensitivity results showed pansensitive bacteria, so will stop meropenem and polymixin B , and start cefepime to cover for proteus too , and streptococcus , will repeat blood culture to confirm clearance , and obtain 2D echo to rule out vegetations (2) Staphylococcus aureus bacteremia Assessment & Plan: due to MSSA, continue vancomycin , monitor trough , obtain 2D echo , repeat culture (3) UTI (urinary tract infection) Assessment & Plan: with VRE, already on vancomycin Subjective Allergies: Coded Allergies: No Known Allergies (Verified , 02/21/07) Objective Vital Signs Last 24 Hour Vital Signs Date Time Temp Pulse Resp B/P (MAP) Pulse Ox O2 Delivery O2 Flow Rate FiO2 06/30/17 07:43 98.1 69 22 141/78 100 Mechanical Ventilator 40 06/30/17 06:56 61 16 40 06/30/17 06:49 159/92 06/30/17 05:11 66 16 40 06/30/17 04:00 98.3 73 16 156/85 100 Mechanical Ventilator 40 06/30/17 04:00 59 06/30/17 02:52 40 06/30/17 02:50 60 16 40 06/30/17 02:27 98.8 62 16 161/92 98 Mechanical Ventilator 40 06/30/17 01:30 63 20 40 06/30/17 00:41 98.4 59 17 142/89 98 Room Air 5.0 40 06/30/17 00:41 98.4 17 170/89 98 Mechanical Ventilator 5.0 40 06/29/17 23:37 5.0 40 06/29/17 23:23 55 17 40 06/29/17 20:54 129 22 40 06/29/17 20:13 61 22 06/29/17 20:12 61 22 Mechanical Ventilator 40 06/29/17 19:55 98.4 59 17 170/89 98 Mechanical Ventilator 5.0 Height (Feet): 6 Height (Inches): 0.00 Weight (Pounds): 220 Laboratory Tests Test 06/29/17 20:12 06/29/17 20:17 White Blood Count 6.0 K/UL (4.8-10.8) Red Blood Count 4.74 M/UL (4.70-6.10) Hemoglobin 12.6 G/DL (14.2-18.0) L Hematocrit 39.8 % (42.0-52.0) L Mean Corpuscular Volume 84 FL (80-99) Mean Corpuscular Hemoglobin 26.6 PG (27.0-31.0) L Mean Corpuscular Hemoglobin Concent 31.7 G/DL (32.0-36.0) L Red Cell Distribution Width 13.3 % (11.6-14.8) Platelet Count 140 K/UL (150-450) L Mean Platelet Volume 8.9 FL (6.5-10.1) Neutrophils (%) (Auto) % (45.0-75.0) Lymphocytes (%) (Auto) % (20.0-45.0) Monocytes (%) (Auto) % (1.0-10.0) Eosinophils (%) (Auto) % (0.0-3.0) Basophils (%) (Auto) % (0.0-2.0) Differential Total Cells Counted 100 Neutrophils % (Manual) 39 % (45-75) L Lymphocytes % (Manual) 35 % (20-45) Monocytes % (Manual) 8 % (1-10) Eosinophils % (Manual) 18 % (0-3) H Basophils % (Manual) 0 % (0-2) Band Neutrophils 0 % (0-8) Platelet Estimate Decreased L Platelet Morphology Normal Red Blood Cell Morphology Normal Sodium Level 141 MMOL/L (136-145) Potassium Level 4.3 MMOL/L (3.5-5.1) Chloride Level 104 MMOL/L (98-107) Carbon Dioxide Level 30 MMOL/L (21-32) Anion Gap 7 mmol/L (5-15) Blood Urea Nitrogen 23 mg/dL (7-18) H Creatinine 0.9 MG/DL (0.55-1.30) Estimat Glomerular Filtration Rate > 60 mL/min (>60) Glucose Level 90 MG/DL (74-106) Calcium Level 9.3 MG/DL (8.5-10.1) Total Bilirubin 0.4 MG/DL (0.2-1.0) Aspartate Amino Transf (AST/SGOT) 29 U/L (15-37) Alanine Aminotransferase (ALT/SGPT) 31 U/L (12-78) Alkaline Phosphatase 60 U/L (46-116) Total Creatine Kinase 269 U/L (26-308) Creatine Kinase MB 4.8 NG/ML (0.0-3.6) H Creatine Kinase MB Relative Index 1.7 Pro-B-Type Natriuretic Peptide 173 pg/mL (0-125) H Total Protein 8.1 G/DL (6.4-8.2) Albumin 3.3 G/DL (3.4-5.0) L Globulin 4.8 g/dL Albumin/Globulin Ratio 0.7 (1.0-2.7) L Lipase 142 U/L (73-393) Urine Color Pale yellow Urine Appearance Clear Urine pH 8 (4.5-8.0) Urine Specific [place] 1.010 (1.005-1.035) Urine Protein Negative (NEGATIVE) Urine Glucose (UA) Negative (NEGATIVE) Urine Ketones Negative (NEGATIVE) Urine Occult Blood Negative (NEGATIVE) Urine Nitrite Negative (NEGATIVE) Urine Bilirubin Negative (NEGATIVE) Urine Urobilinogen Normal MG/DL (0.0-1.0) Urine Leukocyte Esterase Negative (NEGATIVE) Current Medications Medications (Trade) Dose Ordered Sig/Kendell Route PRN Reason Start Time Stop Time Status Last Admin Dose Admin Carvedilol (Coreg) 25 mg DAILY GT 06/30/17 09:00 07/30/17 08:59 Hydralazine HCl (Apresoline) 50 mg EVERY 6 HOURS GT 06/30/17 06:00 07/30/17 05:59 06/30/17 06:49 Piperacillin/ Tazobactam/ Dextrose 50 ml @ 12.5 mls/hr EVERY 8 HOURS IVPB 06/30/17 00:30 07/07/17 00:00 Vancomycin HCl (Vanco rx to dose) 1 ea DAILY PRN MISC Per rx protocol 06/30/17 08:15 07/30/17 08:14 Jose Eduardo Osei M.D. Jun 30, 2017 08:20
[2017-06-30] MEDS ORDERED: Polymyxin B Sulfate 500,000 UNITS in D5W 500ml 550 ML IV SCH (09:00)
[2017-06-30] MEDS: Carvedilol 25mg Tab GT SCH (09:37)
[2017-06-30] MEDS: Heparin 5000 units/ml inj SUBQ SCH ×2 (09:39→20:18)
[2017-06-30] MEDS: Vancomycin 1250mg/D5W 250ml IVPB SCH ×2 (11:36→21:42)
--- NOTE | 2017-06-30 12:41 | Wound Care Consultation ---
Wound Assessment Wound Assessment : Wound Number: 1 Wound Present on Admission: Yes New Wound: No Status Change of Wound: No Wound Location Body Site Modif: mid Wound Location Body Site: other - sacrococcygeal extending to left and right buttocks Wound Type: scar Dino Test: Does not Dino Wound Thickness: Full Thickness Percent of Wound [place]/Red: 100 Wound Drainage Amount: None Wound Drainage Odor: None/Absent Tissue Surrounding Wound: Intact Wound General Appearance: Asymptomatic Wound Comment #1 Sacrococcygeal scar tissue extending to left and right buttocks #2 Left and right lower anterior legs with scattered scar tissues Recommendation -Keep clean and dry -Turn and reposition -Optimize nutrition -Offload both heels -Heel protector on both heels -Assess and f/u accordingly for any changes ROSA MARIA WALKER RN Jun 30, 2017 12:41
--- NOTE | 2017-06-30 12:41 | Wound Care Consultation ---
Wound Assessment Wound Assessment : Wound Number: 1 Wound Present on Admission: Yes New Wound: No Status Change of Wound: No Wound Location Body Site Modif: mid Wound Location Body Site: other - sacrococcygeal extending to left and right buttocks Wound Type: scar Dino Test: Does not Dino Wound Thickness: Full Thickness Percent of Wound [place]/Red: 100 Wound Drainage Amount: None Wound Drainage Odor: None/Absent Tissue Surrounding Wound: Intact Wound General Appearance: Asymptomatic Wound Comment #1 Sacrococcygeal scar tissue extending to left and right buttocks #2 Left and right lower anterior legs with scattered scar tissues Recommendation -Keep clean and dry -Turn and reposition -Optimize nutrition -Offload both heels -Heel protector on both heels -Assess and f/u accordingly for any changes ROSA MARIA WALKER RN Jun 30, 2017 12:41
--- NOTE | 2017-06-30 12:41 | Wound Care Consultation ---
Wound Assessment Wound Assessment : Wound Number: 1 Wound Present on Admission: Yes New Wound: No Status Change of Wound: No Wound Location Body Site Modif: mid Wound Location Body Site: other - sacrococcygeal extending to left and right buttocks Wound Type: scar Dino Test: Does not Dino Wound Thickness: Full Thickness Percent of Wound [place]/Red: 100 Wound Drainage Amount: None Wound Drainage Odor: None/Absent Tissue Surrounding Wound: Intact Wound General Appearance: Asymptomatic Wound Comment #1 Sacrococcygeal scar tissue extending to left and right buttocks #2 Left and right lower anterior legs with scattered scar tissues Recommendation -Keep clean and dry -Turn and reposition -Optimize nutrition -Offload both heels -Heel protector on both heels -Assess and f/u accordingly for any changes ROSA MARIA WALKER RN Jun 30, 2017 12:41
--- NOTE | 2017-06-30 13:19 | Diagnostic Imaging Report ---
Indication: COUGH Technique: One view of the chest Comparison: 06/27/2017 Findings: Patient's arm overlies the left chest, per technologist could not be moved adequately. Right basilar opacity with peripheral scarring is unchanged. Note that similar opacity is evident on a smaller exam of 11/25/2012 and earlier studies. The left lung is largely obscured by the overlying arm, but no gross infiltrates are demonstrated. The heart is mildly enlarged. Tracheostomy again demonstrated. Impression: Very limited exam, as described Right basilar opacity, probably on the basis of chronic scarring, superimposed acute infiltrate completely excludable No definite acute process otherwise This agrees with the preliminary interpretation provided by the emergency room physician
[2017-06-30] MEDS ORDERED: Meropenem 1 GM in NS 110 ML IVPB SCH (14:00)
[2017-06-30] MEDS ORDERED: NS 275ml ONE (15:38)
--- NOTE | 2017-06-30 16:30 | History and Physical Report ---
DATE OF ADMISSION: 06/29/2017 DATE OF SERVICE: 06/30/2017 HISTORY OF PRESENT ILLNESS: This is a 62-year-old male, who was transferred from [facility] to [facility]. The patient is nonverbal unable to provide any history. Apparently, he has a history of bacteremia recently, which has shown both gram-negative and gram-positive rods. There is also documentation that he may have an UTI. The patient has a chronic Forrester. The patient as discussed above is nonverbal and no other information is available. Review of outside medical records was performed, which showed that the patient is a resident at [facility]. He has a history of chronic tracheostomy and vent dependence, diabetes mellitus; CVA; dysphagia, status post G-tube; hypertension; history of COPD; and previous UTI. MEDICATIONS: Enteral feedings with Jevity, ascorbic acid, bisacodyl, cephalexin, clonidine, Coreg, ferrous sulfate, Fleet Enema p.r.n., and glucagon p.r.n. The patient is on a sliding scale, also on hydralazine. He is also on Lantus 10 units subcutaneous b.i.d., multivitamins, KCl, milk of magnesia, and Tylenol. CODE STATUS: Full. ALLERGIES: None noted. REVIEW OF SYSTEMS: Not obtainable. PHYSICAL EXAMINATION: GENERAL: Examination reveals a 62-year-old male. At this time, the patient is nonverbal. VITAL SIGNS: Blood pressure is 140/70, heart rate is 69, and respirations are 20. He is afebrile. O2 sats 100%. NECK: Tracheostomy site is noted and is clean. SKIN: The patient's skin has evidence of old healed scars. No decubitus noted. CHEST: Clear to auscultation. ABDOMEN: Soft. G-tube site is clean. EXTREMITIES: The patient has bilateral contractures of upper and lower extremities. There is no edema. LABORATORY AND DIAGNOSTIC DATA: Lab testing shows hemoglobin of 12.6, white count 6.0, BUN 23, and creatinine 0.9. Urinalysis is negative. X-ray of chest was obtained several days ago, which shows calcification of the pleura on the right side. Review of previous blood cultures obtained on 06/27/2017 has shown that the patient has gram-positive cocci seen in both blood cultures. The organisms isolated include Staphylococcus aureus as well as Acinetobacter, sensitive to Cipro and Levaquin. IMPRESSION: 1. Recent bacteremia. 2. Possible urinary tract infection. 3. Chronic tracheostomy. 4. Cerebrovascular accident. 5. Diabetes mellitus. 6. Hypertension. 7. Chronic encephalopathy. DISCUSSION: The patient appears to be nontoxic at this time. He has no leukocytosis or fever. However, he has been found to have blood culture positive with Staphylococcus aureus and Acinetobacter baumannii. I will admit to this hospital. Start Levaquin and vancomycin. We will consult ID. Repeat blood cultures and UA. Replace Forrester. We will follow carefully. Torres Jurado M.D. DR: NELLA JOB#: [id number] CC:
[2017-06-30] MEDS: Cefepime HCl 2 GM in NS 110 ML IVPB SCH (20:15)
[2017-07-01] VITALS: BP 127/62
--- NOTE | 2017-07-01 00:30 | Consultation ---
DATE OF CONSULTATION: 06/30/2017 INFECTIOUS DISEASE CONSULTATION CONSULTING PHYSICIAN: Jose Eduardo Swann M.D. REQUESTING PHYSICIAN: Segun Figueredo M.D. REASON FOR CONSULTATION: Sepsis with multidrug-resistant Acinetobacter baumannii and staphylococcus. Recommendation for antibiotics treatment. HISTORY OF PRESENT ILLNESS: The patient is a 62-year-old male with past medical history of diabetes, hypertension, status post tracheostomy and PEG tube for nutrition who is quadriplegic was recently in the emergency room for GI bleeding evaluation. The patient had blood culture done at that time in the emergency room as part of his workup and he was stabilized and discharged back to the longterm. Unfortunately, his blood culture grew multiple resistant organisms including Acinetobacter baumannii complex, Proteus mirabilis, multidrug-resistant, Staphylococcus aureus, and Streptococcus group G. The patient's urine culture also grew Enterococcus faecalis, sensitive to vancomycin so I was consulted by the primary provider for antibiotics recommendation and further management since the patient was brought back from the longterm after the positive blood culture result on 06/27/2017. As of note, the patient is poor historian, nonverbal, cannot provide any history. History was mainly obtained from the medical record and nursing staff. PAST MEDICAL HISTORY: Significant for diabetes, hypertension, quadriplegia, chronic respiratory failure, status post tracheostomy and PEG tube placement due to dysphagia. PAST SURGICAL HISTORY: He had G-tube placement and tracheostomy. ALLERGIES: No known drug allergy. MEDICATIONS: Currently, the patient was started by me on meropenem, polymyxin, and vancomycin. For the rest of his medicine, please refer to MAR. SOCIAL HISTORY: He is a longterm resident. No recent drugs, tobacco, or alcohol. REVIEW OF SYSTEMS: Unable to obtain. The patient is poor historian, cannot provide good history. PHYSICAL EXAMINATION: VITAL SIGNS: Temperature 98.4, pulse 71, respirations 20, blood pressure 117/74, and saturation 100% on FiO2 of 40% on mechanical ventilation. GENERAL: Middle-aged male, quadriplegic, nonverbal with tracheostomy on mechanical ventilation, not in acute distress. HEENT: Normocephalic and atraumatic. Pupils are reactive to light. Dry oral mucosa. No exudate. NECK: Supple. No lymphadenopathy. Tracheal site intact and clean. No drainage. CARDIOVASCULAR: Regular rate and rhythm. S1 and S2 normal. No murmur or gallop. LUNGS: He had diminished breathing sounds at the bases with crackles. ABDOMEN: Soft, nontender, and nondistended. Positive bowel sounds. No hepatosplenomegaly or ascites. EXTREMITIES: Contracted right upper extremity edema and swelling. Mild bruises on the lower extremity. SKIN: He had multiple small skin pressure wound in the sacrum and the legs probably stage I. LABORATORY DATA: Showed white count of 6000, hemoglobin of 12.6, and platelet count of 140. BUN of 23 and creatinine of 0.9. AST of 29 and ALT of 31. Urinalysis was negative for infection at this time. MICROBIOLOGY: From 06/27/2017 showed blood culture first set grew Acinetobacter baumannii complex pansensitive and Proteus mirabilis, multidrug-resistant, sensitive to amikacin, Zosyn and Bactrim and Staph aureus and Streptococcus group G. Next set grew Staph aureus, Acinetobacter baumannii, and diphtheroids. Urine culture on 06/27/2017 grew pansensitive Enterococcus faecalis. IMAGING: Chest x-ray showed limited exam, right basilar opacity probably on the basis of chronic scarring, superimposed acute infiltrate completely excludable. No definite acute process otherwise. ASSESSMENT AND RECOMMENDATION: 1. Septicemia with Acinetobacter species. Updated microbiology culture showed pansensitive species so we will switch to cefepime empiric treatment and discontinue meropenem and polymyxin, which I started earlier since his Acinetobacter is sensitive and that will cover his Proteus mirabilis. Do suspect source is his urine or probably wound. 2. Staphylococcus bacteremia methicillin-sensitive Staphylococcus aureus. We will continue vancomycin and this will cover his urine infection due to vancomycin resistant enterococcus. 3. Urinary tract infection due to vancomycin resistant enterococcus. We will continue vancomycin empiric treatment, which will cover his Staphylococcus bacteremia and his urine infection. Thank you for the consult. Infectious Disease will continue to follow. Jose Eduardo Swann M.D. DR: BULMARO JOB#: [id number] CC:
[2017-07-01] MEDS: HydrALAZINE 50mg tab GT SCH ×4 (00:39→18:04)
[2017-07-01 04:00] VITALS: BP 151/105
[2017-07-01 08:00] VITALS: BP 126/62
--- NOTE | 2017-07-01 08:43 | Pulmonology Progress Note ---
Assessment/Plan Assessment/Plan 1. Recent bacteremia. Last set of blood C/S are negative 2. Possible urinary tract infection. 3. Chronic tracheostomy. 4. Cerebrovascular accident. 5. Diabetes mellitus. 6. Hypertension. 7. Chronic encephalopathy. DISCUSSION: The patient appears to be nontoxic at this time. He has no leukocytosis or fever. However, he has been found to have blood culture positive with Staphylococcus aureus and Acinetobacter baumannii. Appreciate ID consult Replace Usama. We will follow carefully. Subjective Interval Events: No new events; afebrile; newest set of blood CS are negative Constitutional: Reports: no symptoms HEENT: Repors: no symptoms Respiratory: Reports: no symptoms Cardiovascular: Reports: no symptoms Gastrointestinal/Abdominal: Reports: no symptoms Genitourinary: Reports: no symptoms Allergies: Coded Allergies: No Known Allergies (Verified , 02/21/07) Objective Last 24 Hour Vital Signs Date Time Temp Pulse Resp B/P (MAP) Pulse Ox O2 Delivery O2 Flow Rate FiO2 07/01/17 07:05 67 17 40 07/01/17 05:30 151/105 07/01/17 05:10 75 18 40 07/01/17 04:00 98.0 61 19 151/105 100 Mechanical Ventilator 07/01/17 04:00 40 07/01/17 03:59 63 07/01/17 03:10 55 17 40 07/01/17 00:46 64 17 40 07/01/17 00:39 127/62 07/01/17 00:00 98.2 67 16 127/62 100 Mechanical Ventilator 07/01/17 00:00 62 07/01/17 00:00 40 06/30/17 23:03 74 17 40 06/30/17 21:25 53 16 40 06/30/17 20:00 40 06/30/17 20:00 55 06/30/17 19:57 98.5 68 14 127/65 100 Mechanical Ventilator 06/30/17 19:10 58 16 40 06/30/17 18:34 117/74 06/30/17 17:04 70 16 40 06/30/17 16:14 40 06/30/17 16:12 98.4 71 20 117/74 100 Mechanical Ventilator 40 06/30/17 16:00 57 06/30/17 15:45 74 16 40 06/30/17 13:41 56 16 40 06/30/17 12:00 40 06/30/17 12:00 55 06/30/17 11:41 129/78 06/30/17 11:37 99.3 74 18 129/78 100 Mechanical Ventilator 40 06/30/17 10:41 78 19 40 06/30/17 09:37 60 141/78 06/30/17 08:53 60 16 40 General Appearance: no acute distress HEENT: normocephalic, status post trach Respiratory/Chest: chest wall non-tender, lungs clear Cardiovascular: normal peripheral pulses, normal rate Abdomen: normal bowel sounds Microbiology Date/Time Source Procedure Growth Status 06/29/17 20:30 Blood Blood Culture - Preliminary NO GROWTH AFTER 24 HOURS Resulted 06/29/17 20:17 Blood Blood Culture - Preliminary NO GROWTH AFTER 24 HOURS Resulted 06/29/17 20:17 Indwelling Cath Urine Culture - Final NO GROWTH AFTER 48 HOURS Complete Current Medications Medications (Trade) Dose Ordered Sig/Kendell Route PRN Reason Start Time Stop Time Status Last Admin Dose Admin Carvedilol (Coreg) 25 mg DAILY GT 06/30/17 09:00 07/30/17 08:59 06/30/17 09:37 Cefepime HCl 2 gm/ Sodium Chloride 110 ml @ 220 mls/hr EVERY 12 HOURS IVPB 06/30/17 21:00 07/07/17 20:59 06/30/17 20:15 Heparin Sodium (Porcine) (Heparin 5000 units/ml) 5,000 units EVERY 12 HOURS SUBQ 06/30/17 09:00 07/30/17 08:59 06/30/17 20:18 Hydralazine HCl (Apresoline) 50 mg EVERY 6 HOURS GT 06/30/17 06:00 07/30/17 05:59 07/01/17 05:30 Vancomycin HCl (Vanco rx to dose) 1 ea DAILY PRN MISC Per rx protocol 06/30/17 08:15 07/30/17 08:14 Vancomycin HCl/ Dextrose 250 ml @ 166.667 mls/hr Q12H IVPB 06/30/17 10:00 07/05/17 09:59 06/30/17 21:42 Torres Jurado MD Jul 01, 2017 08:43
[2017-07-01] MEDS: Carvedilol 25mg Tab GT SCH (09:00)
[2017-07-01] MEDS: Heparin 5000 units/ml inj SUBQ SCH ×2 (09:19→21:06)
[2017-07-01] MEDS: Cefepime HCl 2 GM in NS 110 ML IVPB SCH ×2 (09:19→21:04)
[2017-07-01] MEDS: Vancomycin 1250mg/D5W 250ml IVPB SCH ×2 (09:58→21:40)
[2017-07-01 11:34] LABS: BASOPHILS % (AUTO) 0.5 % (0.0-2.0); EOSINOPHILS % (AUTO) 15.5 % (0.0-3.0); HEMATOCRIT 35.2 % (42.0-52.0); HEMOGLOBIN 11.3 G/DL (14.2-18.0); LYMPHOCYTES % (AUTO) 28.3 % (20.0-45.0); MEAN CORPUSCULAR VOLUME 84 FL (80-99); MONOCYTES % (AUTO) 7.8 % (1.0-10.0); NEUTROPHILS % (AUTO) 47.8 % (45.0-75.0); PLATELET COUNT 114 K/UL (150-450); RED CELL DISTRIBUTION WIDTH 13.5 % (11.6-14.8); WHITE BLOOD COUNT 5.4 K/UL (4.8-10.8)
[2017-07-01 12:00] VITALS: BP 128/77
[2017-07-01 12:00] LABS: ANION GAP 6 mmol/L (5-15); BLOOD UREA NITROGEN 19 mg/dL (7-18); CALCIUM 8.9 MG/DL (8.5-10.1); CARBON DIOXIDE 29 MMOL/L (21-32); CHLORIDE 104 MMOL/L (98-107); POTASSIUM 3.9 MMOL/L (3.5-5.1); SODIUM 139 MMOL/L (136-145)
--- NOTE | 2017-07-01 14:46 | Cardiology Report ---
APPROVED REPORT EKG Measurement Heart [id number] Sinus bradycardia Septal infarct, age undetermined Abnormal ECG
--- NOTE | 2017-07-01 14:46 | Cardiology Report ---
APPROVED REPORT EKG Measurement Heart [id number] Sinus bradycardia Septal infarct, age undetermined Abnormal ECG
--- NOTE | 2017-07-01 14:46 | Cardiology Report ---
APPROVED REPORT EKG Measurement Heart [id number] [place] [id number] Sinus bradycardia Septal infarct, age undetermined Abnormal ECG
[2017-07-01 16:00] VITALS: BP 121/74
--- NOTE | 2017-07-01 16:14 | Infectious Diseases Prog Note ---
Assessment/Plan Problems: (1) Septicemia due to Acinetobacter species Assessment & Plan: on cefepime to cover for proteus too , and streptococcus , repeated blood culture to confirm clearance is pending , await 2D echo to rule out vegetations (2) Staphylococcus aureus bacteremia Assessment & Plan: due to MSSA, continue vancomycin , monitor trough , obtain 2D echo to rule out vegetations , repeat blood culture to confirm clearance (3) UTI (urinary tract infection) Assessment & Plan: with VRE, already on vancomycin Subjective ROS Limited/Unobtainable: Yes Allergies: Coded Allergies: No Known Allergies (Verified , 02/21/07) Subjective he was lying in bed comfortable, afebrile, no diarrhea or blood in stool, no fever or chills Objective Vital Signs Last 24 Hour Vital Signs Date Time Temp Pulse Resp B/P (MAP) Pulse Ox O2 Delivery O2 Flow Rate FiO2 07/01/17 16:00 40 07/01/17 14:34 69 16 40 07/01/17 13:29 65 16 40 07/01/17 12:30 128/77 07/01/17 12:17 60 07/01/17 12:00 40 07/01/17 12:00 98.2 60 16 128/77 100 Mechanical Ventilator 40 07/01/17 10:48 64 16 40 07/01/17 09:00 52 126/62 07/01/17 08:57 58 16 40 07/01/17 08:00 60 07/01/17 08:00 40 07/01/17 08:00 98.7 56 16 126/62 100 Mechanical Ventilator 40 07/01/17 07:05 67 17 40 07/01/17 05:30 151/105 07/01/17 05:10 75 18 40 07/01/17 04:00 98.0 61 19 151/105 100 Mechanical Ventilator 07/01/17 04:00 40 07/01/17 03:59 63 07/01/17 03:10 55 17 40 07/01/17 00:46 64 17 40 07/01/17 00:39 127/62 07/01/17 00:00 98.2 67 16 127/62 100 Mechanical Ventilator 07/01/17 00:00 62 07/01/17 00:00 40 06/30/17 23:03 74 17 40 06/30/17 21:25 53 16 40 06/30/17 20:00 40 06/30/17 20:00 55 06/30/17 19:57 98.5 68 14 127/65 100 Mechanical Ventilator 06/30/17 19:10 58 16 40 06/30/17 18:34 117/74 06/30/17 17:04 70 16 40 06/30/17 16:14 40 06/30/17 16:12 98.4 71 20 117/74 100 Mechanical Ventilator 40 Height (Feet): 6 Height (Inches): 0.00 Weight (Pounds): 220 General Appearance: WD/WN, no acute distress HEENT: normocephalic, atraumatic, anicteric, mucous membranes moist, supple, status post trach Respiratory/Chest: chest wall non-tender, lungs clear, normal breath sounds, no respiratory distress Cardiovascular: normal peripheral pulses, normal rate, regular rhythm, no gallop/murmur, no JVD Abdomen: normal bowel sounds, soft, non tender, no organomegaly, non distended , no mass Extremities: no cyanosis, no clubbing Skin: no rash, no lesions, no ulcers Neurologic/Psychiatric: alert, oriented x 3, responsive Lymphatic: no neck adenopathy Microbiology Date/Time Source Procedure Growth Status 06/29/17 20:30 Blood Blood Culture - Preliminary NO GROWTH AFTER 24 HOURS Resulted 06/29/17 20:17 Blood Blood Culture - Preliminary NO GROWTH AFTER 24 HOURS Resulted 06/29/17 20:17 Indwelling Cath Urine Culture - Final NO GROWTH AFTER 48 HOURS Complete Laboratory Tests Test 07/01/17 04:00 07/01/17 10:45 White Blood Count 5.4 K/UL (4.8-10.8) Red Blood Count 4.20 M/UL (4.70-6.10) L Hemoglobin 11.3 G/DL (14.2-18.0) L Hematocrit 35.2 % (42.0-52.0) L Mean Corpuscular Volume 84 FL (80-99) Mean Corpuscular Hemoglobin 26.8 PG (27.0-31.0) L Mean Corpuscular Hemoglobin Concent 32.0 G/DL (32.0-36.0) Red Cell Distribution Width 13.5 % (11.6-14.8) Platelet Count 114 K/UL (150-450) L Mean Platelet Volume 9.0 FL (6.5-10.1) Neutrophils (%) (Auto) 47.8 % (45.0-75.0) Lymphocytes (%) (Auto) 28.3 % (20.0-45.0) Monocytes (%) (Auto) 7.8 % (1.0-10.0) Eosinophils (%) (Auto) 15.5 % (0.0-3.0) H Basophils (%) (Auto) 0.5 % (0.0-2.0) Sodium Level 139 MMOL/L (136-145) Potassium Level 3.9 MMOL/L (3.5-5.1) Chloride Level 104 MMOL/L (98-107) Carbon Dioxide Level 29 MMOL/L (21-32) Anion Gap 6 mmol/L (5-15) Blood Urea Nitrogen 19 mg/dL (7-18) H Creatinine 1.0 MG/DL (0.55-1.30) Estimat Glomerular Filtration Rate > 60 mL/min (>60) Glucose Level 83 MG/DL (74-106) Calcium Level 8.9 MG/DL (8.5-10.1) Current Medications Medications (Trade) Dose Ordered Sig/Kendell Route PRN Reason Start Time Stop Time Status Last Admin Dose Admin Carvedilol (Coreg) 25 mg DAILY GT 06/30/17 09:00 07/30/17 08:59 06/30/17 09:37 Cefepime HCl 2 gm/ Sodium Chloride 110 ml @ 220 mls/hr EVERY 12 HOURS IVPB 06/30/17 21:00 07/07/17 20:59 07/01/17 09:19 Heparin Sodium (Porcine) (Heparin 5000 units/ml) 5,000 units EVERY 12 HOURS SUBQ 06/30/17 09:00 07/30/17 08:59 07/01/17 09:19 Hydralazine HCl (Apresoline) 50 mg EVERY 6 HOURS GT 06/30/17 06:00 07/30/17 05:59 07/01/17 12:30 Vancomycin HCl (Vanco rx to dose) 1 ea DAILY PRN MISC Per rx protocol 06/30/17 08:15 07/30/17 08:14 Vancomycin HCl/ Dextrose 250 ml @ 166.667 mls/hr Q12H IVPB 11/3/17 10:00 07/05/17 09:59 07/01/17 09:58 Jose Eduardo Swann M.D. Jul 01, 2017 16:14
[2017-07-01] MEDS ORDERED: Tubing IV Secondary IV ONE (17:46)
[2017-07-01] MEDS ORDERED: NS 275ml ONE (17:46)
[2017-07-01 20:00] VITALS: BP 129/76
[2017-07-02] VITALS: BP 147/92
[2017-07-02] MEDS: HydrALAZINE 50mg tab GT SCH ×4 (00:02→18:15)
[2017-07-02 04:00] VITALS: BP 143/87
[2017-07-02 08:00] VITALS: BP 137/77
[2017-07-02] MEDS: Carvedilol 25mg Tab GT SCH (08:58)
[2017-07-02] MEDS: Heparin 5000 units/ml inj SUBQ SCH ×2 (08:58→20:23)
[2017-07-02] MEDS: Cefepime HCl 2 GM in NS 110 ML IVPB SCH ×2 (08:59→20:21)
[2017-07-02 09:38] LABS: HEMATOCRIT 41.8 % (42.0-52.0); HEMOGLOBIN 13.1 G/DL (14.2-18.0); MEAN CORPUSCULAR VOLUME 84 FL (80-99); PLATELET COUNT 122 K/UL (150-450); RED BLOOD COUNT 4.99 M/UL (4.70-6.10); RED CELL DISTRIBUTION WIDTH 13.6 % (11.6-14.8); WHITE BLOOD COUNT 4.1 K/UL (4.8-10.8)
--- NOTE | 2017-07-02 11:31 | Pulmonology Progress Note ---
Assessment/Plan Assessment/Plan 1. Recent bacteremia. Last set of blood C/S are negative 2. Possible urinary tract infection. 3. Chronic tracheostomy. 4. Cerebrovascular accident. 5. Diabetes mellitus. 6. Hypertension. 7. Chronic encephalopathy. DISCUSSION: The patient appears to be nontoxic at this time. He has no leukocytosis or fever. However, he has been found to have blood culture positive with Staphylococcus aureus and Acinetobacter baumannii. Appreciate ID consult Replace Usama. I will follow carefully. Subjective Interval Events: No new events Constitutional: Reports: no symptoms HEENT: Repors: no symptoms Respiratory: Reports: no symptoms Cardiovascular: Reports: no symptoms Gastrointestinal/Abdominal: Reports: no symptoms Genitourinary: Reports: no symptoms Neurologic: Reports: no symptoms Allergies: Coded Allergies: No Known Allergies (Verified , 02/21/07) Objective Last 24 Hour Vital Signs Date Time Temp Pulse Resp B/P (MAP) Pulse Ox O2 Delivery O2 Flow Rate FiO2 07/02/17 10:46 67 16 40 07/02/17 08:58 56 137/77 07/02/17 08:54 63 16 40 07/02/17 08:00 98.2 54 16 137/77 100 Mechanical Ventilator 40 07/02/17 08:00 54 07/02/17 08:00 40 07/02/17 07:01 51 16 40 07/02/17 05:34 129/76 07/02/17 05:30 53 16 40 07/02/17 04:00 58 07/02/17 04:00 97.5 58 16 143/87 100 Mechanical Ventilator 40 07/02/17 04:00 40 07/02/17 02:47 60 16 40 07/02/17 00:55 52 16 40 07/02/17 00:02 141/92 07/02/17 00:00 40 07/02/17 00:00 97.5 60 16 147/92 100 Mechanical Ventilator 40 07/02/17 00:00 60 07/01/17 23:10 57 16 40 07/01/17 20:52 51 16 40 07/01/17 20:00 40 07/01/17 20:00 97.5 72 16 129/76 100 Mechanical Ventilator 40 07/01/17 20:00 54 07/01/17 19:03 57 16 40 07/01/17 18:13 52 16 40 07/01/17 18:04 126/71 07/01/17 16:00 40 07/01/17 16:00 66 07/01/17 16:00 98.2 60 16 121/74 100 Mechanical Ventilator 40 07/01/17 14:34 69 16 40 07/01/17 13:29 65 16 40 07/01/17 12:30 128/77 07/01/17 12:17 60 07/01/17 12:00 40 07/01/17 12:00 98.2 60 16 128/77 100 Mechanical Ventilator 40 Intake and Output 07/02/17 07/03/17 19:00 07:00 Intake Total 245 ml Balance 245 ml IV Total 110 ml Tube Feeding 135 ml General Appearance: no acute distress HEENT: normocephalic Respiratory/Chest: chest wall non-tender, lungs clear Cardiovascular: normal peripheral pulses, normal rate Abdomen: normal bowel sounds, soft, non tender Extremities: no cyanosis Microbiology Date/Time Source Procedure Growth Status 06/29/17 20:30 Blood Blood Culture - Preliminary NO GROWTH AFTER 48 HOURS Resulted 06/29/17 20:17 Blood Blood Culture - Preliminary NO GROWTH AFTER 48 HOURS Resulted 06/30/17 06:00 Nasal Nares MRSA Culture - Final NO METHICILLIN RESISTANT STAPH AUREUS... Complete 06/29/17 20:17 Indwelling Cath Urine Culture - Final NO GROWTH AFTER 48 HOURS Complete 06/30/17 06:00 Rectum VRE Culture - Final NO VANCOMYCIN RESISTANT ENTEROCOCCUS ... Complete Laboratory Tests 07/01/17 21:00: Vancomycin Level Trough 24.8H 07/02/17 09:30: White Blood Count 4.1L, Red Blood Count 4.99, Hemoglobin 13.1L, Hematocrit 41.8L , Mean Corpuscular Volume 84, Mean Corpuscular Hemoglobin 26.2L, Mean Corpuscular Hemoglobin Concent 31.3L, Red Cell Distribution Width 13.6, Platelet Count 122L, Mean Platelet Volume 8.1, Neutrophils (%) (Auto) , Lymphocytes (%) (Auto) , Monocytes (%) (Auto) , Eosinophils (%) (Auto) , Basophils (%) (Auto) , Differential Total Cells Counted 100, Neutrophils % ( Manual) 45, Lymphocytes % (Manual) 37, Monocytes % (Manual) 3, Eosinophils % ( Manual) 15H, Basophils % (Manual) 0, Band Neutrophils 0, Platelet Estimate DecreasedL, Platelet Morphology Normal, Red Blood Cell Morphology Normal Current Medications Medications (Trade) Dose Ordered Sig/Kendell Route PRN Reason Start Time Stop Time Status Last Admin Dose Admin Carvedilol (Coreg) 25 mg DAILY GT 06/30/17 09:00 07/30/17 08:59 06/30/17 09:37 Cefepime HCl 2 gm/ Sodium Chloride 110 ml @ 220 mls/hr EVERY 12 HOURS IVPB 06/30/17 21:00 07/07/17 20:59 07/02/17 08:59 Heparin Sodium (Porcine) (Heparin 5000 units/ml) 5,000 units EVERY 12 HOURS SUBQ 06/30/17 09:00 07/30/17 08:59 07/01/17 21:06 Hydralazine HCl (Apresoline) 50 mg EVERY 6 HOURS GT 06/30/17 06:00 07/30/17 05:59 07/02/17 05:34 Vancomycin HCl (Vanco rx to dose) 1 ea DAILY PRN MISC Per rx protocol 06/30/17 08:15 07/30/17 08:14 Vancomycin HCl 1 gm/Dextrose 250 ml @ 167.007 mls/hr Q12HR@0200,1400 IVPB 07/02/17 14:00 07/07/17 13:59 Torres Jurado MD Jul 02, 2017 11:31
[2017-07-02 12:00] VITALS: BP 109/66
[2017-07-02] MEDS ORDERED: Vancomycin 1gm in D5W 275ml IVPB ONE (14:00)
[2017-07-02 16:11] VITALS: BP 111/65
[2017-07-02 20:00] VITALS: BP 114/64
--- NOTE | 2017-07-02 21:33 | Infectious Diseases Prog Note ---
Assessment/Plan Problems: (1) Septicemia due to Acinetobacter species Assessment & Plan: on cefepime to cover for proteus too , and streptococcus , repeated blood culture to confirm clearance is negative , await 2D echo to rule out vegetations (2) Staphylococcus aureus bacteremia Assessment & Plan: due to MSSA, continue vancomycin , monitor trough , obtain 2D echo to rule out vegetations , repeat blood culture to confirm clearance (3) UTI (urinary tract infection) Assessment & Plan: with pansensitive E.faecalis , already on vancomycin which will cover it Subjective ROS Limited/Unobtainable: Yes Allergies: Coded Allergies: No Known Allergies (Verified , 02/21/07) Subjective he was lying in bed comfortable, afebrile, no diarrhea or blood in stool, no fever or chills, no cough or dyspnea Objective Vital Signs Last 24 Hour Vital Signs Date Time Temp Pulse Resp B/P (MAP) Pulse Ox O2 Delivery O2 Flow Rate FiO2 07/02/17 20:00 86 07/02/17 19:30 52 16 40 07/02/17 18:15 125/82 07/02/17 16:49 53 16 40 07/02/17 16:11 98.0 74 18 111/65 99 Mechanical Ventilator 40 07/02/17 16:00 52 07/02/17 16:00 40 07/02/17 15:09 59 16 40 07/02/17 13:17 61 16 40 07/02/17 12:00 53 07/02/17 12:00 40 07/02/17 12:00 98.2 69 18 109/66 99 Mechanical Ventilator 40 07/02/17 11:52 109/66 07/02/17 10:46 67 16 40 07/02/17 08:58 56 137/77 07/02/17 08:54 63 16 40 07/02/17 08:00 98.2 54 16 137/77 100 Mechanical Ventilator 40 07/02/17 08:00 54 07/02/17 08:00 40 07/02/17 07:01 51 16 40 07/02/17 05:34 129/76 07/02/17 05:30 53 16 40 07/02/17 04:00 58 07/02/17 04:00 97.5 58 16 143/87 100 Mechanical Ventilator 40 07/02/17 04:00 40 07/02/17 02:47 60 16 40 07/02/17 00:55 52 16 40 07/02/17 00:02 141/92 07/02/17 00:00 40 07/02/17 00:00 97.5 60 16 147/92 100 Mechanical Ventilator 40 07/02/17 00:00 60 07/01/17 23:10 57 16 40 Height (Feet): 6 Height (Inches): 0.00 Weight (Pounds): 220 General Appearance: WD/WN, no acute distress, cachetic HEENT: normocephalic, atraumatic, anicteric, mucous membranes moist, PERRL, no JVD, status post trach Respiratory/Chest: chest wall non-tender, normal breath sounds, no respiratory distress, no accessory muscle use, decreased breath sounds, crackles/rales Cardiovascular: normal peripheral pulses, normal rate, regular rhythm, no gallop/murmur, no JVD Abdomen: normal bowel sounds, soft, non tender, no organomegaly, non distended , no mass Extremities: no cyanosis, no clubbing Skin: no rash, no lesions, no ulcers Neurologic/Psychiatric: alert Microbiology Date/Time Source Procedure Growth Status 06/30/17 06:00 Nasal Nares MRSA Culture - Final NO METHICILLIN RESISTANT STAPH AUREUS... Complete 06/30/17 06:00 Rectum VRE Culture - Final NO VANCOMYCIN RESISTANT ENTEROCOCCUS ... Complete Laboratory Tests Test 07/02/17 09:30 White Blood Count 4.1 K/UL (4.8-10.8) L Red Blood Count 4.99 M/UL (4.70-6.10) Hemoglobin 13.1 G/DL (14.2-18.0) L Hematocrit 41.8 % (42.0-52.0) L Mean Corpuscular Volume 84 FL (80-99) Mean Corpuscular Hemoglobin 26.2 PG (27.0-31.0) L Mean Corpuscular Hemoglobin Concent 31.3 G/DL (32.0-36.0) L Red Cell Distribution Width 13.6 % (11.6-14.8) Platelet Count 122 K/UL (150-450) L Mean Platelet Volume 8.1 FL (6.5-10.1) Neutrophils (%) (Auto) % (45.0-75.0) Lymphocytes (%) (Auto) % (20.0-45.0) Monocytes (%) (Auto) % (1.0-10.0) Eosinophils (%) (Auto) % (0.0-3.0) Basophils (%) (Auto) % (0.0-2.0) Differential Total Cells Counted 100 Neutrophils % (Manual) 45 % (45-75) Lymphocytes % (Manual) 37 % (20-45) Monocytes % (Manual) 3 % (1-10) Eosinophils % (Manual) 15 % (0-3) H Basophils % (Manual) 0 % (0-2) Band Neutrophils 0 % (0-8) Platelet Estimate Decreased L Platelet Morphology Normal Red Blood Cell Morphology Normal Current Medications Medications (Trade) Dose Ordered Sig/Kendell Route PRN Reason Start Time Stop Time Status Last Admin Dose Admin Carvedilol (Coreg) 25 mg DAILY GT 06/30/17 09:00 07/30/17 08:59 06/30/17 09:37 Cefepime HCl 2 gm/ Sodium Chloride 110 ml @ 220 mls/hr EVERY 12 HOURS IVPB 06/30/17 21:00 07/07/17 20:59 07/02/17 20:21 Heparin Sodium (Porcine) (Heparin 5000 units/ml) 5,000 units EVERY 12 HOURS SUBQ 06/30/17 09:00 07/30/17 08:59 07/02/17 20:23 Hydralazine HCl (Apresoline) 50 mg EVERY 6 HOURS GT 06/30/17 06:00 07/30/17 05:59 07/02/17 18:15 Vancomycin HCl (Vanco rx to dose) 1 ea DAILY PRN MISC Per rx protocol 06/30/17 08:15 07/30/17 08:14 Vancomycin HCl 1 gm/Dextrose 250 ml @ 167.007 mls/hr Q12HR@0200,1400 IVPB 07/02/17 14:00 07/07/17 13:59 Jose Eduardo Swann M.D. Jul 02, 2017 21:33
[2017-07-03] VITALS: BP 125/77
[2017-07-03] MEDS: HydrALAZINE 50mg tab GT SCH ×4 (00:24→18:26)
[2017-07-03 04:00] VITALS: BP 108/55
[2017-07-03 08:00] VITALS: BP 129/79
[2017-07-03] MEDS: Heparin 5000 units/ml inj SUBQ SCH ×2 (08:38→21:00)
[2017-07-03] MEDS: Cefepime HCl 2 GM in NS 110 ML IVPB SCH ×2 (08:38→21:00)
[2017-07-03] MEDS: Carvedilol 25mg Tab GT SCH (08:38)
[2017-07-03] MEDS ORDERED: NS 275ml ONE (10:33)
[2017-07-03] MEDS ORDERED: Tubing IV Secondary IV ONE (10:33)
--- NOTE | 2017-07-03 10:33 | Diagnostic Imaging Report ---
APPROVED REPORT CPT Code: 20563 Present Symptoms Shortness of breath BILATERAL: Imaging reveals a patent deep venous system bilaterally. There is no evidence of thrombus within the femoral, popliteal or tibial segments. The greater saphenous veins are also within normal limits. Doppler indicates normal spontaneous flow within these segments. The calf veins were not well visualized bilaterally. Incidental finding: Left inguinal lymph node measuring 1.3 cm x 0.7 cm.
--- NOTE | 2017-07-03 10:33 | Diagnostic Imaging Report ---
APPROVED REPORT CPT Code: 67983 Present Symptoms Shortness of breath BILATERAL: Imaging reveals a patent deep venous system bilaterally. There is no evidence of thrombus within the femoral, popliteal or tibial segments. The greater saphenous veins are also within normal limits. Doppler indicates normal spontaneous flow within these segments. The calf veins were not well visualized bilaterally. Incidental finding: Left inguinal lymph node measuring 1.3 cm x 0.7 cm.
--- NOTE | 2017-07-03 10:33 | Diagnostic Imaging Report ---
APPROVED REPORT CPT Code: 54387 Present Symptoms Shortness of breath BILATERAL: Imaging reveals a patent deep venous system bilaterally. There is no evidence of thrombus within the femoral, popliteal or tibial segments. The greater saphenous veins are also within normal limits. Doppler indicates normal spontaneous flow within these segments. The calf veins were not well visualized bilaterally. Incidental finding: Left inguinal lymph node measuring 1.3 cm x 0.7 cm.
--- NOTE | 2017-07-03 11:26 | Pulmonology Progress Note ---
Assessment/Plan Assessment/Plan 1. Recent bacteremia. Last set of blood C/S are negative 2. Possible urinary tract infection. Culture however negative 3. Chronic tracheostomy. 4. Cerebrovascular accident. 5. Diabetes mellitus. 6. Hypertension. 7. Chronic encephalopathy. DISCUSSION: Discussed with ID WIll place PICC DC back to [facility] for IV abx Subjective Interval Events: Nofever or WBC; blood and urine CS negative Constitutional: Reports: no symptoms HEENT: Repors: no symptoms Respiratory: Reports: no symptoms Cardiovascular: Reports: no symptoms Gastrointestinal/Abdominal: Reports: no symptoms Genitourinary: Reports: no symptoms Allergies: Coded Allergies: No Known Allergies (Verified , 02/21/07) Objective Last 24 Hour Vital Signs Date Time Temp Pulse Resp B/P (MAP) Pulse Ox O2 Delivery O2 Flow Rate FiO2 07/03/17 10:51 56 16 40 07/03/17 08:38 52 129/79 07/03/17 08:37 54 16 40 07/03/17 08:00 98.2 67 18 129/79 100 Mechanical Ventilator 40 07/03/17 08:00 40 07/03/17 08:00 53 07/03/17 06:39 55 16 40 07/03/17 06:20 108/55 07/03/17 05:16 50 16 40 07/03/17 05:00 62 07/03/17 04:00 40 07/03/17 04:00 97.0 49 16 108/55 100 Mechanical Ventilator 40 07/03/17 03:30 65 19 40 07/03/17 01:30 50 16 40 07/03/17 00:24 125/77 07/03/17 00:00 98.2 52 16 125/77 100 Mechanical Ventilator 40 07/03/17 00:00 55 07/02/17 23:30 51 16 40 07/02/17 21:30 52 16 40 07/02/17 20:00 40 07/02/17 20:00 98.8 70 21 114/64 100 Mechanical Ventilator 40 07/02/17 20:00 86 07/02/17 19:30 52 16 40 07/02/17 18:15 125/82 07/02/17 16:49 53 16 40 07/02/17 16:11 98.0 74 18 111/65 99 Mechanical Ventilator 40 07/02/17 16:00 52 07/02/17 16:00 40 07/02/17 15:09 59 16 40 07/02/17 13:17 61 16 40 07/02/17 12:00 53 07/02/17 12:00 40 07/02/17 12:00 98.2 69 18 109/66 99 Mechanical Ventilator 40 07/02/17 11:52 109/66 General Appearance: no acute distress HEENT: normocephalic Respiratory/Chest: chest wall non-tender, lungs clear Cardiovascular: normal peripheral pulses, normal rate Abdomen: normal bowel sounds, soft, non tender Current Medications Medications (Trade) Dose Ordered Sig/Kendell Route PRN Reason Start Time Stop Time Status Last Admin Dose Admin Carvedilol (Coreg) 25 mg DAILY GT 06/30/17 09:00 07/30/17 08:59 06/30/17 09:37 Cefepime HCl 2 gm/ Sodium Chloride 110 ml @ 220 mls/hr EVERY 12 HOURS IVPB 06/30/17 21:00 07/07/17 20:59 07/03/17 08:38 Heparin Sodium (Porcine) (Heparin 5000 units/ml) 5,000 units EVERY 12 HOURS SUBQ 06/30/17 09:00 07/30/17 08:59 07/02/17 20:23 Hydralazine HCl (Apresoline) 50 mg EVERY 6 HOURS GT 06/30/17 06:00 07/30/17 05:59 07/03/17 06:20 Vancomycin HCl (Vanco rx to dose) 1 ea DAILY PRN MISC Per rx protocol 06/30/17 08:15 07/30/17 08:14 Vancomycin HCl 1 gm/Dextrose 250 ml @ 167.007 mls/hr Q12HR@0200,1400 IVPB 07/02/17 14:00 07/07/17 13:59 07/03/17 02:08 Torres Jurado MD Jul 03, 2017 11:26
[2017-07-03 12:00] VITALS: BP 91/54
[2017-07-03] MEDS ORDERED: Lidocaine 1% Plain 30 ml INJ ONE (15:00)
[2017-07-03] MEDS ORDERED: Heparin 2000 units/Ns 1000ml INJ ONE (15:00)
[2017-07-03 16:00] VITALS: BP 127/78
--- NOTE | 2017-07-03 16:16 | Infectious Diseases Prog Note ---
Assessment/Plan Problems: (1) Septicemia due to Acinetobacter species Assessment & Plan: on cefepime to cover for proteus mirabilis too , and streptococcus , repeated blood culture to confirm clearance is negative , await 2D echo to rule out vegetations, will treat for two weeks with iv cefepime . EOT 07/13/17. will need PICC line for local [employer] antibiotics (2) Staphylococcus aureus bacteremia Assessment & Plan: due to MSSA, continue vancomycin , monitor trough , obtain 2D echo to rule out vegetations , repeat blood culture to confirm clearance is negative on 06/29 , will need 4 weeks of iv vancomycin for MSSA bacteremia . EOT 07/27/17 (3) UTI (urinary tract infection) Assessment & Plan: with pansensitive E.faecalis , already on vancomycin which will cover it Subjective ROS Limited/Unobtainable: Yes Allergies: Coded Allergies: No Known Allergies (Verified , 02/21/07) Subjective he was lying in bed comfortable, afebrile, no diarrhea or blood in stool, no fever or chills, no cough or dyspnea Objective Vital Signs Last 24 Hour Vital Signs Date Time Temp Pulse Resp B/P (MAP) Pulse Ox O2 Delivery O2 Flow Rate FiO2 07/03/17 16:00 98.2 57 16 127/78 100 Mechanical Ventilator 40 07/03/17 14:54 59 16 40 07/03/17 12:48 58 16 40 07/03/17 12:00 46 07/03/17 12:00 91/54 07/03/17 12:00 98.2 66 16 91/54 100 Mechanical Ventilator 40 07/03/17 12:00 40 07/03/17 10:51 56 16 40 07/03/17 08:38 52 129/79 07/03/17 08:37 54 16 40 07/03/17 08:00 98.2 67 18 129/79 100 Mechanical Ventilator 40 07/03/17 08:00 40 07/03/17 08:00 53 07/03/17 06:39 55 16 40 07/03/17 06:20 108/55 07/03/17 05:16 50 16 40 07/03/17 05:00 62 07/03/17 04:00 40 07/03/17 04:00 97.0 49 16 108/55 100 Mechanical Ventilator 40 07/03/17 03:30 65 19 40 07/03/17 01:30 50 16 40 07/03/17 00:24 125/77 07/03/17 00:00 98.2 52 16 125/77 100 Mechanical Ventilator 40 07/03/17 00:00 55 07/02/17 23:30 51 16 40 07/02/17 21:30 52 16 40 07/02/17 20:00 40 07/02/17 20:00 98.8 70 21 114/64 100 Mechanical Ventilator 40 07/02/17 20:00 86 07/02/17 19:30 52 16 40 07/02/17 18:15 125/82 07/02/17 16:49 53 16 40 Height (Feet): 6 Height (Inches): 0.00 Weight (Pounds): 220 General Appearance: WD/WN, no acute distress, cachetic HEENT: normocephalic, atraumatic, anicteric, mucous membranes moist, supple, no JVD, status post trach Respiratory/Chest: chest wall non-tender, no respiratory distress, no accessory muscle use, decreased breath sounds, crackles/rales Cardiovascular: normal peripheral pulses, normal rate, regular rhythm, no gallop/murmur, no JVD Abdomen: normal bowel sounds, soft, non tender, no organomegaly, non distended , no mass Extremities: no cyanosis, no clubbing Skin: no rash, no lesions, no ulcers Neurologic/Psychiatric: alert, oriented x 3 Current Medications Medications (Trade) Dose Ordered Sig/Kendell Route PRN Reason Start Time Stop Time Status Last Admin Dose Admin Carvedilol (Coreg) 25 mg DAILY GT 06/30/17 09:00 07/30/17 08:59 06/30/17 09:37 Cefepime HCl 2 gm/ Sodium Chloride 110 ml @ 220 mls/hr EVERY 12 HOURS IVPB 06/30/17 21:00 07/07/17 20:59 07/03/17 08:38 Chlorhexidine Gluconate (Krista-Hex 2%) 1 applic DAILY@1999 TOPIC 07/03/17 20:00 08/02/17 19:59 Heparin Sodium (Porcine) (Heparin 5000 units/ml) 5,000 units EVERY 12 HOURS SUBQ 06/30/17 09:00 07/30/17 08:59 07/02/17 20:23 Hydralazine HCl (Apresoline) 50 mg EVERY 6 HOURS GT 06/30/17 06:00 07/30/17 05:59 07/03/17 06:20 Vancomycin HCl (Vanco rx to dose) 1 ea DAILY PRN MISC Per rx protocol 06/30/17 08:15 07/30/17 08:14 Vancomycin HCl 1 gm/Dextrose 250 ml @ 167.007 mls/hr Q12HR@0200,1400 IVPB 07/02/17 14:00 07/07/17 13:59 07/03/17 13:43 Jose Eduardo Swann M.D. Jul 03, 2017 16:16
[2017-07-03] MEDS ORDERED: Dyna-Hex 2% Top Sol 2oz TOPIC SCH (20:00)
[2017-07-03 20:20] VITALS: BP 101/62
[2017-07-04] MEDS ORDERED: VANCOMYCIN1 GM/2502 IVPB (13:42)
[2017-07-04] MEDS ORDERED: CEFEPIME-D2 GM/50 ML IVPB (13:42)
--- NOTE | 2017-07-04 13:43 | Discharge Summary ---
Discharge Summary Hospital Course Date of Admission Jun 29, 2017 at 23:48 Date of Discharge Jul 03, 2017 at 20:25 Admitting Diagnosis SEPSIS HPI Luis Aguilar is a 62 year old male who was admitted on Jun 29, 2017 at 23:48 for Sepsis Hospital Course dc summary #[id number] Discharge Medications New Medications: Cefepime Hcl/D5w (Cefepime-Dextrose 2 Gm/50 Ml) 2 Gm/50 Ml Piggyback 2 GM IVPB EVERY 12 HOURS, #20 BAG Vancomycin Hcl/D5w (Vancomycin-D5w 1 G/250 Ml) 1 Gm/250 Ml Plast..bag 1 GM IVPB Q12HR, #48 BAG Continued Medications: Acetaminophen* (Acetaminophen 325MG Tablet*) 325 Mg Tablet 650 MG GT Q4HR PRN for Fever/Headache/Mild Pain, TAB Amlodipine Besylate (Norvasc) 5 Mg Tablet 5 MG ORAL Q12HR PRN for For High Blood Pressure, TAB Bisacodyl (Bisacodyl) 10 Mg Supp.rect 10 MG RC DAILY PRN for Constipation, SUPP Carvedilol (Coreg) 25 Mg Tab 25 MG GT Q12H, #20 TAB Chlorhexidine Gluconate (Peridex) 15 Ml Mouthwash 5 ML MM EVERY 8 HOURS, ML Clonidine HCl (Clonidine HCl) 0.1 Mg Tab 0.1 MG GT Q6HR PRN Ferrous Sulfate (Ferrous Sulfate) 220 Mg/5 Ml Elixir 330 MG PO DAILY, ML Glucagon HCl (Glucagon HCl) 1 Mg Vial 1 MG IM PRN, VIAL Hydralazine Hcl* (Hydralazine Hcl*) 50 Mg Tablet 75 MG GT Q6HR Insulin Glargine (Lantus) 100 Unit/1 Ml Insuln.pen 0 SUBQ BID, #1 EA 0 Refills Insulin Regular, Human* (Novolin R*) 100 Unit/1 Ml Vial 0 SUBQ .SLIDING SCALE, UNITS Magnesium Hydroxide* (Milk Of Magnesia*) 2,400 Mg/10 Ml Oral.susp 10 ML ORAL DAILY PRN for Constipation, ML Multivitamin-Min/Iron/FA/Vit K (Multi-Day Plus Minerals Tablet) 1 Each Tablet 1 EACH PO DAILY, TAB Na Phos,M-B/Na Phos,Di-Ba* (Fleet Enema*) 133 Ml Enema 133 ML RC DAILY PRN Omeprazole (Omeprazole) 20 Mg Tablet.dr 20 MG GT DAILY, TAB Potassium Chloride (Potassium Chloride) 10 Meq Tablet.er 10 MEQ GT DAILY, #30 TAB 0 Refills Potassium Chloride (K-Tab ER) 20 Meq Tablet.er 20 MEQ GT DAILY, TAB Vit C/Ascorbate Ca/Ascorb Sod (Vitamin C 500 Mg/15 Ml Liquid) 500 Mg/15 Ml Liquid 500 MG PO DAILY, ML Discharge Condition Upon Discharge: stable Discharge Disposition Patient was discharged to SNF/Subacute Facility(03) Discharge Diagnoses: Discharge Instructions Discharge Instructions Special Instructions I have been assigned to complete a D/C Summary on this account. I was not involved in the patient management Marcos CannonMarla liao NP Jul 04, 2017 13:43
--- NOTE | 2017-07-05 01:15 | Discharge Summary 2 SIG ---
DATE OF ADMISSION: 06/29/2017 DATE OF DISCHARGE: 07/03/2017 REASON FOR ADMISSION: 62-year-old male, who recently came to the emergency room for evaluation on 06/27/2017 and was diagnosed with UTI. Blood cultures were obtained. The patient was sent back to [facility] facility on empiric antibiotics. Blood culture came back with Gram-positive and Gram-negative rods, and urine culture was positive for Enterococcus faecalis. The patient was asked to be brought back for further evaluation. On arrival, no fever, no leukocytosis. The patient with chronic respiratory failure, ventilator dependent with tracheostomy, dysphagia, G-tube, history of diabetes, hypertension, CVA. Patient was unable to provide any information. The patient was admitted for antibiotic management with admitting diagnoses of bacteremia and UTI. HOSPITAL STAY: The patient was admitted to [facility]. Infectious Disease consult was requested. At that time, final cultures were back. Blood culture revealed MRSA Acinetobacter. Urine culture revealed Enterococcus faecalis. The patient was on vancomycin and cefepime per Infectious Disease recommendation. To cover for Acinetobacter, the patient will need total treatment for two weeks after negative blood culture and to cover for Staph aureus, the patient will need four weeks of antibiotics starting from the day of negative blood culture. On this admission, blood culture drawn on 06/29/2017, were negative. Urine culture also negative. PICC line was placed prior to discharge. The patient will need to continue at the [facility] facility antibiotics: vancomycin until 07/27/2017 and cefepime until 07/13/2017 . Ventilator support and tracheostomy care were provided. Strict aspiration precautions were maintained. The patient was on G-tube feeding, tolerated feeding. group home facility medications were resumed. DVT prophayxlis was provided. The patient was stable for transfer back to [facility] facility. FINAL DIAGNOSES: 1. Septicemia with Acinetobacter species. 2. Staphylococcus aureus bacteremia. 3. Urinary tract infection. 4. Chronic respiratory failure, ventilator dependent with tracheostomy. DISCHARGE MEDICATIONS: See medication reconciliation list. DISCHARGE INSTRUCTIONS: The patient was discharged to [facility] facility. 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 Complete antibiotic course as outlined in the medication reconciliation list. Torres Tirmizi, M.D. I have been assigned to dictate discharge summary on this account and I was not involved in the patient's management. Marla Cannonyanni NSheldon DR: Carter JOB#: [id number] CC: [place]
--- NOTE | 2017-07-05 01:15 | Discharge Summary 2 SIG ---
DATE OF ADMISSION: 06/29/2017 DATE OF DISCHARGE: 07/03/2017 REASON FOR ADMISSION: 62-year-old male, who recently came to the emergency room for evaluation on 06/27/2017 and was diagnosed with UTI. Blood cultures were obtained. The patient was sent back to [facility] on empiric antibiotics. Blood culture came back with Gram-positive and Gram-negative rods, and urine culture was positive for Enterococcus faecalis. The patient was asked to be brought back for further evaluation. On arrival, no fever, no leukocytosis. The patient with chronic respiratory failure, ventilator dependent with tracheostomy, dysphagia, G-tube, history of diabetes, hypertension, CVA. Patient was unable to provide any information. The patient was admitted for antibiotic management with admitting diagnoses of bacteremia and UTI. HOSPITAL STAY: The patient was admitted to [facility]. Infectious Disease consult was requested. At that time, final cultures were back. Blood culture revealed MRSA Acinetobacter. Urine culture revealed Enterococcus faecalis. The patient was on vancomycin and cefepime per Infectious Disease recommendation. To cover for Acinetobacter, the patient will need total treatment for two weeks after negative blood culture and to cover for Staph aureus, the patient will need four weeks of antibiotics starting from the day of negative blood culture. On this admission, blood culture drawn on 06/29/2017, were negative. Urine culture also negative. PICC line was placed prior to discharge. The patient will need to continue at the [facility] facility antibiotics: vancomycin until 07/27/2017 and cefepime until 07/13/2017 . Ventilator support and tracheostomy care were provided. Strict aspiration precautions were maintained. The patient was on G-tube feeding, tolerated feeding. senior living facility medications were resumed. DVT prophayxlis was provided. The patient was stable for transfer back to [facility]. FINAL DIAGNOSES: 1. Septicemia with Acinetobacter species. 2. Staphylococcus aureus bacteremia. 3. Urinary tract infection. 4. Chronic respiratory failure, ventilator dependent with tracheostomy. DISCHARGE MEDICATIONS: See medication reconciliation list. DISCHARGE INSTRUCTIONS: The patient was discharged to [facility]. 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 Complete antibiotic course as outlined in the medication reconciliation list. Torres Tirmizi, M.D. I have been assigned to dictate discharge summary on this account and I was not involved in the patient's management. Marla Cannonyanni NSheldon DR: Carter JOB#: [id number] CC: [place]
--- NOTE | 2017-07-05 01:15 | Discharge Summary 2 SIG ---
DATE OF ADMISSION: 06/29/2017 DATE OF DISCHARGE: 07/03/2017 REASON FOR ADMISSION: 62-year-old male, who recently came to the emergency room for evaluation on 06/27/2017 and was diagnosed with UTI. Blood cultures were obtained. The patient was sent back to group home facility on empiric antibiotics. Blood culture came back with Gram-positive and Gram-negative rods, and urine culture was positive for Enterococcus faecalis. The patient was asked to be brought back for further evaluation. On arrival, no fever, no leukocytosis. The patient with chronic respiratory failure, ventilator dependent with tracheostomy, dysphagia, G-tube, history of diabetes, hypertension, CVA. Patient was unable to provide any information. The patient was admitted for antibiotic management with admitting diagnoses of bacteremia and UTI. HOSPITAL STAY: The patient was admitted to [facility]. Infectious Disease consult was requested. At that time, final cultures were back. Blood culture revealed MRSA Acinetobacter. Urine culture revealed Enterococcus faecalis. The patient was on vancomycin and cefepime per Infectious Disease recommendation. To cover for Acinetobacter, the patient will need total treatment for two weeks after negative blood culture and to cover for Staph aureus, the patient will need four weeks of antibiotics starting from the day of negative blood culture. On this admission, blood culture drawn on 06/29/2017, were negative. Urine culture also negative. PICC line was placed prior to discharge. The patient will need to continue at the group home facility antibiotics: vancomycin until 07/27/2017 and cefepime until 07/13/2017 . Ventilator support and tracheostomy care were provided. Strict aspiration precautions were maintained. The patient was on G-tube feeding, tolerated feeding. [facility]. DVT prophayxlis was provided. The patient was stable for transfer back to group home facility. FINAL DIAGNOSES: 1. Septicemia with Acinetobacter species. 2. Staphylococcus aureus bacteremia. 3. Urinary tract infection. 4. Chronic respiratory failure, ventilator dependent with tracheostomy. DISCHARGE MEDICATIONS: See medication reconciliation list. DISCHARGE INSTRUCTIONS: The patient was discharged to group home facility. 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 Complete antibiotic course as outlined in the medication reconciliation list. Torres Tirmizi, M.D. I have been assigned to dictate discharge summary on this account and I was not involved in the patient's management. Marla Cannonyanni NSheldon DR: Carter JOB#: [id number] CC: [place]
== END 2017-07-03 20:25 | DRG 720 ==
LOC: EDBD 19:47 → EDUNIT# 19:47 → EMR 20:42 → EDBEDREQ 22:31 → 2W 23:48
PROC: 5A1945Z Respiratory Ventilation, 24-96 Consecutive Hours (ICD-10-PCS; principal; 2017-06-29)
DX: A41.89 Other specified sepsis (principal); G93.49 Other encephalopathy; G82.50 Quadriplegia, unspecified; J96.10 Chronic respiratory failure, unspecified whether with hypoxia or hypercapnia; Z93.0 Tracheostomy status; R13.10 Dysphagia, unspecified; Z93.1 Gastrostomy status; Z16.24 Resistance to multiple antibiotics; I10 Essential (primary) hypertension; E11.9 Type 2 diabetes mellitus without complications; J44.9 Chronic obstructive pulmonary disease, unspecified; Z16.21 Resistance to vancomycin; A41.01 Sepsis due to Methicillin susceptible Staphylococcus aureus; A49.01 Methicillin susceptible Staphylococcus aureus infection, unspecified site; Z86.73 Personal history of transient ischemic attack (TIA), and cerebral infarction without residual deficits
CPT/HCPCS: 36415; 71010; 80048; 80053; 80202; 81003; 82550; 82553; 82962; 83690; 83880; 85007; 85025; 87040; 87081; 87086; 93005; 93970; 94002; 94003; 94664; 99285